=== PATIENT | female | born 1955 | race Hispanic/Latino ===

== ENCOUNTER → 2024-04-11 | Outpatient (CLI) | payer MEDICARE ==
[~2024-04-11] MED LIST: IPRA3AMP24 IH; PRED20B PO
== END | disposition home or self-care (01) ==
LOC: RAH 14:25
PROVIDERS: ATTEND Internal Medicine
DX: Z13.820 Encounter for screening for osteoporosis (principal); M47.26 Other spondylosis with radiculopathy, lumbar region; N28.1 Cyst of kidney, acquired
CPT/HCPCS: 72100

== ENCOUNTER 2025-03-07 15:22 | Inpatient (IN) | payer MEDICARE ==
[~2025-03-07] VITALS: Ht 162.6 cm; Wt 83.7 kg
--- NOTE | 2025-03-07 15:53 | EKG ---
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
[2025-03-07 16:08] LABS: BASOPHILS # (AUTO) 0.03 K/uL (0.00-0.20); BASOPHILS % (AUTO) 0.3 % (0.0-5.0); EOSINOPHILS # (AUTO) 0.14 K/uL (0.00-0.70); EOSINOPHILS % (AUTO) 1.5 % (0.0-8.0); HEMATOCRIT 44.6 % (36-48); IMMATURE GRANULOCYTE ABSOLUTE 0.02 K/uL (0-1); LYMPHOCYTES # (AUTO) 4.1 K/uL (1.0-4.8); LYMPHOCYTES % (AUTO) 44.1 % (21.0-51.0); MEAN CORPUSCULAR HGB CONC 32.5 g/dL (32.0-36.0); MEAN CORPUSCULAR VOLUME 95.5 fL (79-99); MONOCYTES # (AUTO) 0.7 K/uL (0.1-1.0); NEUTROPHILS # (AUTO) 4.4 K/uL (1.8-7.7); NEUTROPHILS % (AUTO) 46.9 % (40.0-77.0); PLATELET COUNT (AUTO) 228 K/uL (130-400); RED BLOOD CELL COUNT(AUTO) 4.67 MIL/uL (4.00-5.50); RED CELL DISTRIBUTION WIDTH 12.7 % (11.0-15.5); WHITE BLOOD COUNT (AUTO) 9.4 K/uL (4.8-10.8)
[2025-03-07 16:16] LABS: CREATININE 1.1 mg/dL (0.5-1.0); POTASSIUM 3.4 mmol/L (3.5-5.1)
[2025-03-07 16:19] LABS: INR 1.05 (0.85-1.15); PROTHROMBIN TIME 11.1 SEC (9.6-11.6)
[2025-03-07 16:21] LABS: PARTIAL THROMBOPLASTIN TIME 28.5 SEC (26.3-35.5)
--- NOTE | 2025-03-07 16:24 | HMCIMG ---
CHEST 1VW HISTORY: Shortness of breath COMPARISON: 08/18/2023 FINDINGS: A frontal projection of the chest was obtained. No acute pulmonary infiltrates is seen. The heart is normal in size. Prominent interstitial markings are seen. Degenerative changes are seen. No evidence of aortic calcification is seen. IMPRESSION: 1. No acute pulmonary infiltrate is seen.
[2025-03-07 16:26] LABS: MAGNESIUM 1.7 mg/dL (1.80-2.40)
[2025-03-07 16:27] LABS: B-TYPE NATRIURETIC PEPTIDE 9 pg/mL (0-100)
[2025-03-07 16:34] LABS: BAND NEUTROPHILS % (MANUAL) 7 % (0-2); EOSINOPHILS % (MANUAL) 3 % (1-6); LYMPHOCYTES % (MANUAL) 2 % (22-44); MAN.DIFF COMMENT-IMPRESSION MANUAL DIFFERENTIAL; MONOCYTES % (MANUAL) 5 % (2-9); REACTIVE LYMPHOCYTES 37 % (0-0); SEGMENTED NEUTROPHILS % 46 % (40-70); TOTAL CELLS COUNTED 100
[2025-03-07] MEDS: IpraTROPium/alBUTERol SULFATE 3 ML SOLUTION IH ONE ×3 (17:14→22:35)
[2025-03-07 17:15] VITALS: PULSE 82; RESP 18
[2025-03-07] MEDS: 0.9% NACL 500ML IV.SOLN 500 ML IV ONE (17:27)
[2025-03-07] MEDS: Solu-medROL 125MG VIAL IVP ONE (17:27)
--- NOTE | 2025-03-07 17:33 | ERN ---
General Chief Complaint: Congestion Stated Complaint: SOB, COPD Time Seen by MD: 15:22 Source: patient History of Present Illness Initial Comments Patient is a 69-year-old female coming in complaining of shortness of breath. Patient states that she was seen by her PCP started on medications but states it was not been working. States he does has a history of COPD in his on several medications that they are not working. Allergies: Coded Allergies: No Known Allergies (Unverified Allergy, Unknown, 08/16/23) Home Meds Active Scripts Ipratropium/Albuterol Sulfate (Iprat-Albut 0.5-3(2.5) mg/3 ml) 0.5 Mg-3 Mg (2.5 Mg Base)/3 Ml Ampul.neb, 1 UDVIAL IH [id number], #30 VIAL 1 Refill Prov:YEISON PINZON [employer]AR PROJECT MANAGER 08/21/23 Prednisone (Deltasone/Orasone [Bulk]) 20 Mg Tab, 40 MG PO DAILY, #5 TAB Prov:YEISON PINZON SOLAR PROJECT MANAGER 08/21/23 Past Medical History Past Medical History: COPD, Diabetes-Type II Past Surgical History: Hysterectomy, Other, Surgical History Other: CYST REMOVAL FROM RT KIDNEY, HERNIA REPAIR ROS Dictation CONSTITUTIONAL: No chills, no fever, no weakness, no diaphoresis, no malaise. HEAD/FACE: No signs of trauma. EENT: No eye pain, no blurred vision, no tearing, no double vision, no ear pain, no ear discharge, no nose pain, no nasal congestion, no throat pain, no throat swelling, no mouth pain. RESPIRATORY: No cough, no orthopnea, SOB, no stridor, wheezing. CARDIOVASCULAR: No chest pain, no edema, no palpitations, no syncope. GASTROINTESTINAL/ABDOMINAL: No abdominal pain, no constipation, no diarrhea, no nausea, no vomiting. GENITOURINARY: No abnormal discharge, no dysuria, no frequent urination, no hematuria. No complaints of pain in the genitals. MUSCULOSKELETAL: No back pain, no gout, no joint pain, no joint swelling, no muscle pain, no muscle stiffness, no neck pain. INTEGUMENTARY: No change in color, no change in hair/nails, no dryness, no lesion, no lumps, no rash. NEUROLOGICAL/PSYCH: No anxiety, not depressed, no emotional problem, no headache, no numbness, no pre-existing deficit, no history of seizures, no tremors, no weakness. HEMATOLOGIC/LYMPHATIC: Not anemic, no history of blood clots, no apparent bleeding, no bruising, glands not swollen. All Systems Negative, Except as Noted. Physical Exam Physical Exam Dictation VITAL SIGNS: Reviewed. GENERAL APPEARANCE: Alert, oriented x3, no acute distress, obese. HEAD AND FACE: Non-traumatic. EYES: PERRL, pink conjunctivas, eyelid no trauma, anterior chamber clear. EARS: Pinnas intact and no signs of trauma or erythema. Ear canals clear and no discharge. TMs no erythema. NOSE: No discharge, no bleeding. OROPHARYNX: Mouth normal, teeth no caries, tongue pink. Pharynx clear, no erythema. Tonsils no exudates, no abscesses noted. Mucous membrane moist. NECK: Supple, non-tender, no thyromegaly, no masses, no JVD, no bruits. BREAST: Deferred. CHEST: No tenderness, no crepitus, no paradoxical movement, no retractions. LUNGS: Clear, well-ventilated, symmetric, no rales, wheezing, rhonchi, no stridor, good breath sounds bilaterally. HEART: Regular rate, regular rhythm, no murmur, no gallops. VASCULAR: No peripheral edema. ABDOMEN: Soft, positive bowel sounds, nondistended, no guarding, nontender, no rebound, no masses no hepatomegaly, no splenomegaly, no Mercedes's sign, no hernias. RECTAL: Deferred. GENITAL: Deferred. NEUROLOGICAL: Normal speech, gross motor function intact, gross sensory function intact. MUSCULOSKELETAL: Neck nontender, full range of motion, back nontender, full range of motion. EXTREMITIES: Nontender, full range of motion. SKIN: Color pink, dry, no turgor, no rash, no lacerations, no abrasions, no contusions. LYMPHATICS: Deferred. Results Laboratory and Microbiology Lab and Micro Result Laboratory Tests Test 03/07/25 16:00 03/07/25 17:38 White Blood Count 9.4 K/uL (4.8-10.8) Red Blood Count 4.67 MIL/uL (4.00-5.50) Hemoglobin 14.5 g/dL (12.0-16.0) Hematocrit 44.6 % (36-48) Mean Corpuscular Volume 95.5 fL (79-99) Mean Corpuscular Hemoglobin 31.0 pg (27.0-33.0) Mean Corpuscular Hemoglobin Concent 32.5 g/dL (32.0-36.0) Red Cell Distribution Width 12.7 % (11.0-15.5) Platelet Count 228 K/uL (130-400) Mean Platelet Volume 9.7 fL (7.5-10.5) Immature Granulocyte % (Auto) 0.2 % (0-1) Neutrophils (%) (Auto) 46.9 % (40.0-77.0) Lymphocytes (%) (Auto) 44.1 % (21.0-51.0) Monocytes (%) (Auto) 7.0 % (3.0-13.0) Eosinophils (%) (Auto) 1.5 % (0.0-8.0) Basophils (%) (Auto) 0.3 % (0.0-5.0) Neutrophils # (Auto) 4.4 K/uL (1.8-7.7) Lymphocytes # (Auto) 4.1 K/uL (1.0-4.8) Monocytes # (Auto) 0.7 K/uL (0.1-1.0) Eosinophils # (Auto) 0.14 K/uL (0.00-0.70) Basophils # (Auto) 0.03 K/uL (0.00-0.20) Absolute Immature Granulocyte (auto 0.02 K/uL (0-1) Segmented Neutrophils % 46 % (40-70) Band Neutrophils % 7 % (0-2) H Lymphocytes % (Manual) 2 % (22-44) L Monocytes % (Manual) 5 % (2-9) Eosinophils % (Manual) 3 % (1-6) Nucleated Red Blood Cells 0.0 % (0.0-0.19) Differential Comment MANUAL DIFFERENTIAL Reactive Lymphocytes 37 % (0-0) H White Cell Morphology Comment Platelet Morphology Comment Red Blood Cell Morphology See comments Prothrombin Time 11.1 SEC (9.6-11.6) Prothromb Time International Ratio 1.05 (0.85-1.15) Activated Partial Thromboplast Time 28.5 SEC (26.3-35.5) Sodium Level 141 mmol/L (136-145) Potassium Level 3.4 mmol/L (3.5-5.1) L Chloride Level 107 mmol/L (101-111) Carbon Dioxide Level 24 mmol/L (21-32) Blood Urea Nitrogen 28 mg/dL (7-18) H Creatinine 1.1 mg/dL (0.5-1.0) H Glomerular Filtration Rate Calc 55 mL/min (>90) Random Glucose 193 mg/dL (70-105) H Total Calcium 8.4 mg/dL (8.5-10.1) L Magnesium Level 1.70 mg/dL (1.80-2.40) L Total Creatine Kinase 54 U/L (21-232) Troponin I High Sensitivity 5 ng/L (4-50) B-Type Natriuretic Peptide 9 pg/mL (0-100) Urine Color YELLOW (YELLOW) Urine Appearance CLOUDY (CLEAR) H Urine pH 5.5 (5.0-8.0) Urine Specific [place] 1.029 (1.001-1.031) Urine Protein NEGATIVE mg/dL (NEGATIVE) Urine Glucose (UA) NEGATIVE mg/dL (NEGATIVE) Urine Ketones NEGATIVE mg/dL (NEGATIVE) Urine Occult Blood NEGATIVE (NEGATIVE) Urine Nitrate NEGATIVE (NEGATIVE) Urine Bilirubin NEGATIVE mg/dL (NEGATIVE) Urine Urobilinogen 0.2 mg/dL (0.2-1.0) Urine Leukocyte Esterase 25 Katie/uL (NEGATIVE) H Urine RBC 2-5 /HPF (0-1) H Urine WBC 11-25 /HPF (0-1) H Urine Squamous Epithelial Cells FEW /HPF (0-2) Urine Non-Squamous Epithelial Cells <1 /HPF (0-2) Urine Calcium Oxalate Crystals MOD /LPF (None Seen) Urine Other Crystals (Auto) 64 /HPF (None Seen) Urine Bacteria RARE /HPF (None Seen) Labs Reviewed?: Yes EKG/XRAY/US/CT/MRI EKG Comment 03/07/2025 time 3:51 p.m. Ventricular rate 92 Sinus rhythm MS [address] wave elevation or depression X-RAY Comment [address] [place] [id number] IMAGING REPORT Signed PATIENT: CARROLL CESAR MR#: [id number] : 1955 SEX: F AGE: 69 LOCATION: [facility] ORDER [id number] STATUS: REG ER REPORT#: [id number] SERVICE 1531 REASON: SOB ORDERING PHYSICIAN: EDWIN LUONG MD PROCEDURE: CXR1VW - CHEST 1VW CHEST 1VW HISTORY: Shortness of breath COMPARISON: 08/18/2023 FINDINGS: A frontal projection of the chest was obtained. No acute pulmonary infiltrates is seen. The heart is normal in size. Prominent interstitial markings are seen. Degenerative changes are seen. No evidence of aortic calcification is seen. IMPRESSION: 1. No acute pulmonary infiltrate is seen. DICTATED BY: THEODORA BENNETT MD DATE: 03/07/251620 ELECTRONICALLY SIGNED BY: THEODORA BENNETT MD DATE: 03/07/251623 MDM MDM: Differential diagnosis: COPD exacerbation, URI, respiratory distress, Rationale: Tests considered and ordered secondary to shared decision making include: labs, ECG and radiology Previous outside records reviewed: Old ER visits. Risk of complication and/or morbidity or mortality of patient management: None Medications-Per medication reconciliation Need for hospitalization: Patient does meet criteria for hospitalization. Need for emergency major/minor surgery: No There are no social concerns with this patient. Prescription drug management Prescriptions will include symptomatic care Patient's prior external medical records from other ER visits were reviewed by me as indicated. Prior testing and results from previous visits were reviewed. Prior tests were taken into account with medical decision making and resource utilization, independent historian/historians were used to obtain complete medical history. I independently interpreted the test that were performed, results were reviewed by me and considered findings on radiology if ordered. Medical management and examination interpretation discussions were had by me with other qualified healthcare professionals as indicated for the patient's care. She will be admitted under the care of Dr. brown for ongoing management ED Course Orders Procedure Category Date Status Time Cbc With Differential LAB 03/07/25 In Process 15:31 Prothrombin Time With LAB 03/07/25 Complete INR 15:31 B-Type Natriuretic LAB 03/07/25 In Process Peptide 15:31 Chest 1vw RAD 03/07/25 Resulted 15:31 12 Lead Ekg Tracing- EKG 03/07/25 Complete Technical 15:31 Magnesium LAB 03/07/25 Complete 15:31 Creatine Kinase, Total LAB 03/07/25 Complete 15:31 Troponin I High LAB 03/07/25 Complete Sensitivity 15:31 Urinalysis Profile LAB 03/07/25 Complete 15:31 Partial LAB 03/07/25 Complete Thromboplastin Time 15:31 Basic Metabolic Panel LAB 03/07/25 Complete 15:31 Manual Differential LAB 03/07/25 In Process 16:00 0.9% Nacl 500ml PHA 03/07/25 Complete Iv.Soln (Ns 500ml 17:00 Ipratropium/Albuterol PHA 03/07/25 Complete Neb (Duoneb) 17:00 Methylprednisolone PHA 03/07/25 Complete Succ 125mg (Solu-Medr 17:00 Culture Urine TERI 03/07/25 In Process 18:09 Current Medications Medications (Trade) Dose Ordered Sig/Paul Route PRN Reason Start Time Stop Time Status Last Admin Dose Admin Albuterol (DUOneb) 2 udvial ONCE ONCE IH 03/07/25 17:00 03/07/25 17:01 DC 03/07/25 17:14 Methylprednisolone Sodium Succinate (Solu-medROL 125MG) 125 mg ONCE ONCE IVP 03/07/25 17:00 03/07/25 17:01 DC 03/07/25 17:27 Sodium Chloride 500 ml @ 0 mls/hr ONCE ONCE IV 03/07/25 17:00 03/07/25 17:01 DC 03/07/25 17:27 Vital Signs Date Time Temp Pulse Resp B/P (MAP) Pulse Ox O2 Delivery O2 Flow Rate FiO2 03/07/25 17:41 98.8 82 18 143/70 94 Nasal Cannula* 2 28 03/07/25 17:15 82 18 03/07/25 16:11 98.8 84 22 143/70 94 Room Air* 0 21 03/07/25 15:29 98.2 100 20 156/107 94 Room Air DX & DISP Disposition: Inpatient Decision to Admit Time: 18:16 Departure Impression: Primary Impression: COPD exacerbation Additional Impression: Respiratory distress Condition: Stable Referrals: FLORA BROWN MD (PCP) EDWIN LUONG MD March 07, 2025 17:33
[2025-03-07 17:50] LABS: APPEARANCE,URINE CLOUDY (CLEAR); BILIRUBIN,URINE NEGATIVE (NEGATIVE); COLOR,URINE YELLOW (YELLOW); GLUCOSE, URINE (UA) NEGATIVE (NEGATIVE); KETONES,URINE NEGATIVE (NEGATIVE); LEUKOCYTE ESTERASE ,URINE 25 Leu/uL (NEGATIVE); NITRATE,URINE NEGATIVE (NEGATIVE); OCCULT BLOOD,URINE NEGATIVE (NEGATIVE); PH,URINE 5.5 (5.0-8.0); PROTEIN,URINE NEGATIVE (NEGATIVE); UROBILINOGEN,URINE 0.2 mg/dL (0.2-1.0)
[2025-03-07 17:51] LABS: ADD UA MICROSCOPIC YES
[2025-03-07 18:08] LABS: BACTERIA,URINE RARE /HPF (None Seen); CALCIUM OXALATE CRYSTALS,UR MOD /LPF (None Seen); MUCUS,URINE RARE LPF (None Seen); NON-SQUAMOUS EPITHELIAL CELL <1 /HPF (0-2); SQUAMOUS EPITHELIAL CELL,UR FEW /HPF (0-2); UNCLASSIFIED CRYSTAL 64 /HPF (None Seen)
[2025-03-07] MEDS ORDERED: PoTASSium chloRIDE 20MEQ/100ML 100 ML IV PRN (18:30)
[2025-03-07] MEDS ORDERED: PoTASSium chl 10% ELIXIR 20MEQ 20 MEQ/15 ML UDCUP PO PRN (18:30)
[2025-03-07] MEDS: Solu-medROL 40MG VIAL IVP SCH (18:30)
[2025-03-07] MEDS ORDERED: METF-444 PO (18:39)
[2025-03-07] MEDS ORDERED: BUPR100T13 PO (18:39)
[2025-03-07] MEDS ORDERED: SERT20OR6 PO (18:39)
[2025-03-07] MEDS ORDERED: SIMV-43 PO (18:39)
[2025-03-07] MEDS ORDERED: RALO60 PO (18:39)
[2025-03-07] MEDS ORDERED: ALPR-410 PO (18:39)
[2025-03-07] MEDS: cefTRIAXone 1G VIAL IVPB SCH (18:43)
[2025-03-07] MEDS: AZITHROMYCIN 250 MG TABLET PO SCH (18:43)
[2025-03-07] MEDS: ENOXAPARIN SODIUM 80 MG/0.8 ML SQ ONE (18:44)
[2025-03-07] MEDS: PoTASSium chloRIDE 20MEQ ER 20 MEQ ERTAB PO PRN (20:47)
[2025-03-07] MEDS: MAGNESIUM 2GM PREMIX 50ML 50 ML IV PRN (20:48)
[2025-03-07] MEDS: ALPRAZolam 0.5 MG TABLET PO PRN (21:22)
[2025-03-07 22:35] VITALS: PULSE 83; RESP 18
[2025-03-07] MEDS: IpraTROPium/alBUTERol SULFATE 3 ML SOLUTION IH SCH (22:35)
[2025-03-07 22:36] VITALS: PULSE 83; RESP 20; O2SAT 93
--- NOTE | 2025-03-07 22:40 | HP ---
HISTORY AND PHYSICAL NOTE DATE OF CONSULTATION: 03/07/25 REASON FOR CONSULTATION: Shortness of breath HISTORY OF PRESENT ILLNESS: Patient is a 69-year-old female coming in complaining of shortness of breath. Patient states that she was seen by her PCP started on medications but states it was not been working. States he does has a history of COPD in his on several medications that they are not working. Allergies: Coded Allergies: No Known Allergies (Unverified Allergy, Unknown, 08/16/23) Home Meds Active Scripts Ipratropium/Albuterol Sulfate (Iprat-Albut 0.5-3(2.5) mg/3 ml) 0.5 Mg-3 Mg (2.5 Mg Base)/3 Ml Ampul.neb, 1 UDVIAL IH [id number], #30 VIAL 1 Refill Prov:YEISON PINZON BILINGUAL MEDICAL RECEPTIONIST 08/21/23 Prednisone (Deltasone/Orasone [Bulk]) 20 Mg Tab, 40 MG PO DAILY, #5 TAB Prov:YEISON PINZON BILINGUAL MEDICAL RECEPTIONIST 08/21/23 Past History Past Medical History Past Medical History: COPD, Diabetes-Type II Past Surgical History: Hysterectomy, Other, Surgical History Other: CYST REMOVAL FROM RT KIDNEY, HERNIA REPAIR Review of Systems ROS Dictation CONSTITUTIONAL: No chills, no fever, no weakness, no diaphoresis, no malaise. HEAD/FACE: No signs of trauma. EENT: No eye pain, no blurred vision, no tearing, no double vision, no ear pain, no ear discharge, no nose pain, no nasal congestion, no throat pain, no throat swelling, no mouth pain. RESPIRATORY: No cough, no orthopnea, SOB, no stridor, wheezing. CARDIOVASCULAR: No chest pain, no edema, no palpitations, no syncope. GASTROINTESTINAL/ABDOMINAL: No abdominal pain, no constipation, no diarrhea, no nausea, no vomiting. GENITOURINARY: No abnormal discharge, no dysuria, no frequent urination, no hematuria. No complaints of pain in the genitals. MUSCULOSKELETAL: No back pain, no gout, no joint pain, no joint swelling, no muscle pain, no muscle stiffness, no neck pain. INTEGUMENTARY: No change in color, no change in hair/nails, no dryness, no lesion, no lumps, no rash. NEUROLOGICAL/PSYCH: No anxiety, not depressed, no emotional problem, no headache, no numbness, no pre-existing deficit, no history of seizures, no tremors, no weakness. HEMATOLOGIC/LYMPHATIC: Not anemic, no history of blood clots, no apparent bleeding, no bruising, glands not swollen. All Systems Negative, Except as Noted. ALLERGIES: Coded Allergies: No Known Allergies (Unverified Allergy, Unknown, 08/16/23) HOME MEDS: Reported Medications Alprazolam (Alprazolam) 0.5 Mg Tab.rapdis, 0.5 MG PO BID, TAB 03/07/25 Simvastatin (Simvastatin) 20 Mg Tablet, 20 MG PO HS, TAB 03/07/25 Raloxifene HCl (Evista) 60 Mg Tablet, 60 MG PO DAILY, TAB 03/07/25 Bupropion HCl (Bupropion HCl) 100 Mg Tablet, 100 MG PO DAILY, TAB 03/07/25 Sertraline HCl (Sertraline HCl) 20 Mg/Ml Oral.conc, 10 MG PO DAILY, ML 03/07/25 Metformin HCl (Metformin HCl) 500 Mg Tablet, 500 MG PO BID, TAB 03/07/25 Discontinued Scripts Ipratropium/Albuterol Sulfate (Iprat-Albut 0.5-3(2.5) mg/3 ml) 0.5 Mg-3 Mg (2.5 Mg Base)/3 Ml Ampul.neb, 1 UDVIAL IH [id number], #30 VIAL 1 Refill Prov:YEISON PINZON BILINGUAL MEDICAL RECEPTIONIST 08/21/23 Prednisone (Deltasone/Orasone [Bulk]) 20 Mg Tab, 40 MG PO DAILY, #5 TAB Prov:YEISON PINZON BILINGUAL MEDICAL RECEPTIONIST 08/21/23 INPATIENT MEDS: Current Medications Medications Dose Ordered Sig/Paul Start Time Stop Time Status Last Admin Methylprednisolone Sodium Succinate 80 mg Q8H 03/07/25 18:30 04/06/25 18:29 Ceftriaxone Sodium 1 gm Q24H 03/07/25 18:30 03/17/25 18:29 03/07/25 18:43 Azithromycin 500 mg Q24H 03/07/25 18:30 03/17/25 18:29 03/07/25 18:43 Potassium Chloride 100 ml @ 100 mls/hr AD PRN 5/3/25 18:30 04/06/25 18:29 Potassium Chloride 20 meq AD PRN 03/07/25 18:30 04/06/25 18:29 Potassium Chloride 20 meq AD PRN 03/07/25 18:30 04/06/25 18:29 03/07/25 20:47 Magnesium Sulfate 50 ml @ 0 mls/hr PROTOCOL PRN 03/07/25 18:30 04/06/25 18:29 03/07/25 20:48 Alprazolam 0.5 mg BID PRN 03/07/25 21:00 04/06/25 20:59 03/07/25 21:22 Albuterol 1 UDVIAL [id number] 03/07/25 22:30 04/07/25 00:00 03/07/25 22:35 VITAL SIGNS Vital Signs Date Time Temp Pulse Resp B/P (MAP) Pulse Ox O2 Delivery O2 Flow Rate FiO2 03/07/25 22:36 83 20 N/Cannula Low lpm 2.0 03/07/25 22:35 83 18 03/07/25 21:52 98.4 87 20 145/75 95 Room Air* 0 03/07/25 19:52 98.6 81 24 148/99 95 Room Air* 0 03/07/25 18:44 98.8 85 18 127/54 94 Nasal Cannula* 2 03/07/25 17:41 98.8 82 18 143/70 94 Nasal Cannula* 2 03/07/25 17:15 82 18 03/07/25 16:11 98.8 84 22 143/70 94 Room Air* 0 03/07/25 15:29 98.2 100 20 156/107 94 Room Air PHYSICAL EXAM Physical Exam Physical Exam Physical Exam Dictation VITAL SIGNS: Reviewed. GENERAL APPEARANCE: Alert, oriented x3, no acute distress, obese. HEAD AND FACE: Non-traumatic. EYES: PERRL, pink conjunctivas, eyelid no trauma, anterior chamber clear. EARS: Pinnas intact and no signs of trauma or erythema. Ear canals clear and no discharge. TMs no erythema. NOSE: No discharge, no bleeding. OROPHARYNX: Mouth normal, teeth no caries, tongue pink. Pharynx clear, no erythema. Tonsils no exudates, no abscesses noted. Mucous membrane moist. NECK: Supple, non-tender, no thyromegaly, no masses, no JVD, no bruits. BREAST: Deferred. CHEST: No tenderness, no crepitus, no paradoxical movement, no retractions. LUNGS: Clear, well-ventilated, symmetric, no rales, wheezing, rhonchi, no stridor, good breath sounds bilaterally. HEART: Regular rate, regular rhythm, no murmur, no gallops. VASCULAR: No peripheral edema. ABDOMEN: Soft, positive bowel sounds, nondistended, no guarding, nontender, no rebound, no masses no hepatomegaly, no splenomegaly, no Mercedes's sign, no hernias. RECTAL: Deferred. GENITAL: Deferred. NEUROLOGICAL: Normal speech, gross motor function intact, gross sensory function intact. MUSCULOSKELETAL: Neck nontender, full range of motion, back nontender, full range of motion. EXTREMITIES: Nontender, full range of motion. SKIN: Color pink, dry, no turgor, no rash, no lacerations, no abrasions, no contusions. LYMPHATICS: Deferred. LABORATORY RESULTS Laboratory Tests 03/07/25 16:00: White Blood Count 9.4, Red Blood Count 4.67, Hemoglobin 14.5, Hematocrit 44.6, Mean Corpuscular Volume 95.5, Mean Corpuscular Hemoglobin 31.0, Mean Corpuscular Hemoglobin Concent 32.5, Red Cell Distribution Width 12.7, Platelet Count 228, Mean Platelet Volume 9.7, Immature Granulocyte % (Auto) 0.2, Neutrophils (%) (Auto) 46.9, Lymphocytes (%) (Auto) 44.1, Monocytes (%) (Auto) 7.0, Eosinophils (%) (Auto) 1.5, Basophils (%) (Auto) 0.3, Neutrophils # (Auto) 4.4, Lymphocytes # (Auto) 4.1, Monocytes # (Auto) 0.7, Eosinophils # (Auto) 0.14, Basophils # (Auto) 0.03, Absolute Immature Granulocyte (auto 0.02, Segmented Neutrophils % 46, Band Neutrophils % 7, Lymphocytes % (Manual) 2, Monocytes % (Manual) 5, Eosinophils % (Manual) 3, Nucleated Red Blood Cells 0.0, Differential Comment MANUAL DIFFERENTIAL, Reactive Lymphocytes 37, White Cell Morphology Comment , Platelet Morphology Comment , Red Blood Cell Morphology See comments, Prothrombin Time 11.1, Prothromb Time International Ratio 1.05, Activated Partial Thromboplast Time 28.5, Sodium Level 141, Potassium Level 3.4, Chloride Level 107, Carbon Dioxide Level 24, Blood Urea Nitrogen 28, Creatinine 1.1, Glomerular Filtration Rate Calc 55, Random Glucose 193, Total Calcium 8.4, Magnesium Level 1.70, Total Creatine Kinase 54, Troponin I High Sensitivity 5, B-Type Natriuretic Peptide 9 03/07/25 17:38: Urine Color YELLOW, Urine Appearance CLOUDY, Urine pH 5.5, Urine Specific [place] 1.029, Urine Protein NEGATIVE, Urine Glucose (UA) NEGATIVE, Urine Ketones NEGATIVE, Urine Occult Blood NEGATIVE, Urine Nitrate NEGATIVE, Urine Bilirubin NEGATIVE, Urine Urobilinogen 0.2, Urine Leukocyte Esterase 25, Urine RBC 2-5, Urine WBC 11-25, Urine Squamous Epithelial Cells FEW, Urine Non- Squamous Epithelial Cells <1, Urine Calcium Oxalate Crystals MOD, Urine Other Crystals (Auto) 64, Urine Bacteria RARE PROBLEM LIST: (1) Respiratory distress ICD Codes: R06.03 - Acute respiratory distress (2) COPD exacerbation ICD Codes: J44.1 - Chronic obstructive pulmonary disease with (acute) exacerbation PLAN IV steroids bronchodilators and DVT prophylaxis follow-through FLORA BROWN MD March 07, 2025 22:40
--- NOTE | 2025-03-07 23:00 | NUR ---
REPORT GIVEN TO NURSE MIRELES
[2025-03-07 23:07] VITALS: BP 130/70; PULSE 99; RESP 20; TEMP 98
[2025-03-08] VITALS (17 sets, daily range): BP systolic 113–145; BP diastolic 54–64; PULSE 79–108; RESP 17–22; TEMP 97.6–99.3; O2SAT 94–96
[2025-03-08] MEDS ORDERED: IpraTROPium/alBUTERol SULFATE 3 ML SOLUTION IH SCH
[2025-03-08 05:58] LABS: BASOPHILS # (AUTO) 0.01 K/uL (0.00-0.20); BASOPHILS % (AUTO) 0.1 % (0.0-5.0); HEMATOCRIT 42.7 % (36-48); IMMATURE GRANULOCYTE ABSOLUTE 0.03 K/uL (0-1); LYMPHOCYTES # (AUTO) 1.1 K/uL (1.0-4.8); LYMPHOCYTES % (AUTO) 14.3 % (21.0-51.0); MEAN CORPUSCULAR HEMOGLOBIN 31.3 pg (27.0-33.0); MEAN CORPUSCULAR HGB CONC 32.8 g/dL (32.0-36.0); MEAN CORPUSCULAR VOLUME 95.5 fL (79-99); MONOCYTES # (AUTO) 0.1 K/uL (0.1-1.0); MONOCYTES % (AUTO) 1.2 % (3.0-13.0); NEUTROPHILS # (AUTO) 6.2 K/uL (1.8-7.7); PLATELET COUNT (AUTO) 246 K/uL (130-400); RED BLOOD CELL COUNT(AUTO) 4.47 MIL/uL (4.00-5.50); RED CELL DISTRIBUTION WIDTH 12.7 % (11.0-15.5); WHITE BLOOD COUNT (AUTO) 7.4 K/uL (4.8-10.8)
[2025-03-08 06:32] LABS: ALBUMIN 3.4 g/dL (3.5-5.0); BILIRUBIN,TOTAL 0.1 mg/dL (0.2-1.0); CREATININE 1.1 mg/dL (0.5-1.0); MAGNESIUM 2.1 mg/dL (1.80-2.40); POTASSIUM 4.6 mmol/L (3.5-5.1); TOTAL PROTEIN, SERUM 6.8 g/dL (6.0-8.3)
[2025-03-08] MEDS: INSULIN humuLIN R 100 UNIT/ML 3ML SQ SCH (07:09)
[2025-03-08] MEDS: BUPROPION HCL 100 MG PO SCH (09:00)
[2025-03-08] MEDS ORDERED: metFORmin HCL 500 MG TABLET PO SCH (09:00)
[2025-03-08] MEDS: SERTraline HCL 50 MG TABLET PO SCH (09:30)
[2025-03-08] MEDS: RALOXIFENE HCL 60 MG TABLET PO SCH (09:30)
--- NOTE | 2025-03-08 12:37 | NUR ---
Discharge Planning: Pt. states she lives with her spouse Kenji Hidalgo. Contact number is . PCP is Dr. Graham and preferred pharmacy [facility]. Pt. states she is independent with ADL's. No home health, provider services, or DME. Pt. is requesting information for possible provider services. Referral sent to Ashley Ramírez/[facility]. DCP is for home. No d/c needs at present time. Addendum: 03/08/25 at 1241 by JOSÉ LUIS BENNETT RN CM Amended: Links added.
[2025-03-08] MEDS: acetaMINOPHEN 325 MG TAB PO PRN (17:27)
[2025-03-08 17:42] LABS: COVID19 (SARS ANTIGEN RAPID) PRESUMPTIVE NEGATIVE (NEGATIVE); INFLUENZA TYPE A Negative For Type A (NEGATIVE); INFLUENZA TYPE B Negative For Type B (NEGATIVE)
--- NOTE | 2025-03-08 18:22 | CONS ---
[facility] CONSULTATION NOTE Date Patient Seen: March 08, 2025 Time of Visit: 19:06 Supervising Physician: [Dr. Nevarez] Reason for Consultation: [COPD exacerbation] Primary Care Physician: [Dr. Graham] Outpatient Specialists: [ ] Inpatient Consults: [ ] PROBLEM LIST: Chronic obstructive pulmonary disease, with acute exacerbation History of right LL pulmonary nodule, being monitored Hypokalemia Tobacco abuse, 40+ pack years Morbid obesity History of right renal cyst, s/p surgical excision Hyperlipidemia Anxiety HPI: [This is a 61-year-old female with a history of diabetes and COPD who presents to the ED for evaluation of shortness of breaths. Per ED report she was seen by her PCP and prescribed treatment outpatient with no improvement prompting a visit to the ED. her labs on admission including CBC and BNP were within normal limits. CK, troponin and BNP were normal. She had mild leukocyte esterase on UA, pending urine culture. She was treated with DuoNebs, Solu-Medrol and NS 500 mL in the ED. She continues on Rocephin and azithromycin.] PAST MEDICAL HX: see above PAST SURGICAL HX: noncontributory SOCIAL HISTORY: No tobacco, ETOH, or illicit drug use Coded Allergies: No Known Allergies (Unverified Allergy, Unknown, 08/16/23) REVIEW OF SYSTEMS: 12 point ROS reviewed with patient. Pertinent positives mentioned above. Otherwise negative. PHYSICAL EXAM: GENERAL: alert, weak, awake oriented x 3 HEENT: EOMI, Sclera non icteric, moist mucosa NECK: Supple, no JVD, trachea midline LUNGS: Clear breath sounds bilaterally. No wheezes HEART: Regular rate and rhythm. Normal S1 and S2, without murmurs ABD: Abdomen soft, nontender. Bowel sounds present EXT: No clubbing cyanosis or edema NEURO: Alert and oriented to person, follows commands Vital Signs (last 8hr) Date Time Temp Pulse Resp B/P (MAP) Pulse Ox O2 Delivery O2 Flow Rate FiO2 03/08/25 15:16 99.3 107 18 137/54 93 Room Air 03/08/25 14:35 91 19 03/08/25 14:35 91 19 N/A Room Air 21 03/08/25 11:54 98.1 91 19 134/61 94 Room Air 03/08/25 11:16 90 19 03/08/25 11:15 90 19 N/A Room Air 21 LABS: Hematology Labs: Test 03/08/25 05:26 03/07/25 16:00 Range/Units White Blood Count 7.4 4.8-10.8 K/uL Red Blood Count 4.47 4.00-5.50 MIL/uL Hemoglobin 14.0 12.0-16.0 g/dL Hematocrit 42.7 36-48 % Mean Corpuscular Volume 95.5 79-99 fL Mean Corpuscular Hemoglobin 31.3 27.0-33.0 pg Mean Corpuscular Hemoglobin Concent 32.8 32.0-36.0 g/dL Red Cell Distribution Width 12.7 11.0-15.5 % Platelet Count 246 130-400 K/uL Mean Platelet Volume 10.1 7.5-10.5 fL Immature Granulocyte % (Auto) 0.4 0-1 % Neutrophils (%) (Auto) 84.0 H 40.0-77.0 % Lymphocytes (%) (Auto) 14.3 L 21.0-51.0 % Monocytes (%) (Auto) 1.2 L 3.0-13.0 % Eosinophils (%) (Auto) 0.0 0.0-8.0 % Basophils (%) (Auto) 0.1 0.0-5.0 % Neutrophils # (Auto) 6.2 1.8-7.7 K/uL Lymphocytes # (Auto) 1.1 1.0-4.8 K/uL Monocytes # (Auto) 0.1 0.1-1.0 K/uL Eosinophils # (Auto) 0.00 0.00-0.70 K/uL Basophils # (Auto) 0.01 0.00-0.20 K/uL Absolute Immature Granulocyte (auto 0.03 0-1 K/uL Nucleated Red Blood Cells 0.0 0.0-0.19 % Segmented Neutrophils % 46 40-70 % Band Neutrophils % 7 H 0-2 % Lymphocytes % (Manual) 2 L 22-44 % Monocytes % (Manual) 5 2-9 % Eosinophils % (Manual) 3 1-6 % Differential Comment MANUAL DIFFERENTIAL Reactive Lymphocytes 37 H 0-0 % White Cell Morphology Comment Platelet Morphology Comment Red Blood Cell Morphology See comments Chemistry Labs: Test 03/08/25 16:01 03/08/25 05:26 03/07/25 16:00 Range/Units Whole Blood Glucose 222 H 70-110 MG/DL Sodium Level 138 136-145 mmol/L Potassium Level 4.6 3.5-5.1 mmol/L Chloride Level 106 101-111 mmol/L Carbon Dioxide Level 21 21-32 mmol/L Blood Urea Nitrogen 19 H 7-18 mg/dL Creatinine 1.1 H 0.5-1.0 mg/dL Glomerular Filtration Rate Calc 55 >90 mL/min Random Glucose 229 H 70-105 mg/dL Total Calcium 9.1 8.5-10.1 mg/dL Magnesium Level 2.10 1.80-2.40 mg/dL Total Bilirubin 0.1 L 0.2-1.0 mg/dL Aspartate Amino Transf (AST/SGOT) 14 10-37 U/L Alanine Aminotransferase (ALT/SGPT) 28 12-78 U/L Alkaline Phosphatase 88 50-136 U/L Total Protein 6.8 6.0-8.3 g/dL Albumin 3.4 L 3.5-5.0 g/dL Total Creatine Kinase 54 21-232 U/L Troponin I High Sensitivity 5 4-50 ng/L B-Type Natriuretic Peptide 9 0-100 pg/mL Coagulation Labs: Test 03/07/25 16:00 Range/Units Prothrombin Time 11.1 9.6-11.6 SEC Prothromb Time International Ratio 1.05 0.85-1.15 Activated Partial Thromboplast Time 28.5 26.3-35.5 SEC DIAGNOSTICS / RADIOLOGY RESULTS: [ ] PLAN Continue IV antibiotics with Rocephin azithromycin Continue IV Solu-Medrol 80 Q eight Follow urine and sputum cultures Order COVID and flu swabs Obtain baseline ABG Monitor response to treatment Monitor CXR as needed Further management per hospital course All other management per primary Disposition per primary NEURO: Minimize central acting medications as possible. Maintain fall precautions, adequate lighting during the day PULMONARY: Supplemental 02 as needed. Maintain aspiration precautions at all times CARDIOVASCULAR: Follow hemodynamics. Vital signs per facility protocol GI & NUTRITION: Continue with nutritional support. Continue stool softeners and laxatives as needed. KIDNEYS & ELECTROLYTES: Strict monitoring of intake, output and overall fluid balance. Avoid nephrotoxic medications to the extent possible. Medications to be dosed according to renal function. Monitor electrolytes and replace as needed ENDOCRINE: Maintain blood glucose between 100-180 at all times. Hypoglycemia protocol in place INFECTIOUS DISEASE: Trend temperature, WBC and procalcitonin level Follow cultures, deescalate antibiotics as soon as possible. Panculture if new onset fever ONCOLOGY/HEMATOLOGY/COAGULATION: Monitor for s/s of bleeding Monitor hemoglobin, coagulation studies as needed SKIN: Pressure ulcer prevention per facility protocol Specialty mattress ORTHO/REHAB: Continue PT/OT Prophylaxis: Continue GI and DVT prophylaxis Code Status: Full Resuscitation Disposition: TBD Other: Total patient care time exceeds 35 minutes excluding all procedures. ANNAMARIE WHEELER March 08, 2025 18:22
[2025-03-08 18:34] LABS: ABG BASE EXCESS -5.3 mmol/L (-2.0-3.0); ABG HCO3 18.8 mmol/L (21.0-28.0); ABG OXYGEN SATURATION 93.3 % (94.0-98.0); ABG PCO2 33 mmHg (32-45); ABG PH 7.379 (7.350-7.450); PO2, ARTERIAL BG 67.3 mmHg (83.0-108.0); VENT MODE, BG RA (ROOM AIR)
[2025-03-08] MEDS: simVASTatin 20 MG TABLET PO SCH (20:51)
--- NOTE | 2025-03-08 21:53 | PN ---
PROGRESS NOTE PROGRESS NOTE DATE OF PROGRESS NOTE: 03/08/25 SUBJECTIVE: Still persists with wheezing or shortness of breath VITAL SIGNS Vital Signs Date Time Temp Pulse Resp B/P (MAP) Pulse Ox O2 Delivery O2 Flow Rate FiO2 03/08/25 19:12 90 19 03/08/25 19:11 N/A Room Air 21 03/08/25 19:00 98.1 145/64 90 03/08/25 08:00 2 PHYSICAL EXAM: Physical Exam Physical Exam Physical Exam Dictation VITAL SIGNS: Reviewed. GENERAL APPEARANCE: Alert, oriented x3, no acute distress, obese. HEAD AND FACE: Non-traumatic. EYES: PERRL, pink conjunctivas, eyelid no trauma, anterior chamber clear. EARS: Pinnas intact and no signs of trauma or erythema. Ear canals clear and no discharge. TMs no erythema. NOSE: No discharge, no bleeding. OROPHARYNX: Mouth normal, teeth no caries, tongue pink. Pharynx clear, no erythema. Tonsils no exudates, no abscesses noted. Mucous membrane moist. NECK: Supple, non-tender, no thyromegaly, no masses, no JVD, no bruits. BREAST: Deferred. CHEST: No tenderness, no crepitus, no paradoxical movement, no retractions. LUNGS: Clear, well-ventilated, symmetric, no rales, wheezing, rhonchi, no stridor, good breath sounds bilaterally. HEART: Regular rate, regular rhythm, no murmur, no gallops. VASCULAR: No peripheral edema. ABDOMEN: Soft, positive bowel sounds, nondistended, no guarding, nontender, no rebound, no masses no hepatomegaly, no splenomegaly, no Mercedes's sign, no hernias. RECTAL: Deferred. GENITAL: Deferred. NEUROLOGICAL: Normal speech, gross motor function intact, gross sensory function intact. MUSCULOSKELETAL: Neck nontender, full range of motion, back nontender, full range of motion. EXTREMITIES: Nontender, full range of motion. SKIN: Color pink, dry, no turgor, no rash, no lacerations, no abrasions, no con tusions. LYMPHATICS: Deferred. LABORATORY: Laboratory Result(s) Test 03/08/25 05:23 03/08/25 05:26 03/08/25 10:26 03/08/25 16:01 Whole Blood Glucose 228 MG/DL (70-110) 173 MG/DL (70-110) 222 MG/DL (70-110) White Blood Count 7.4 K/uL (4.8-10.8) Red Blood Count 4.47 MIL/uL (4.00-5.50) Hemoglobin 14.0 g/dL (12.0-16.0) Hematocrit 42.7 % (36-48) Mean Corpuscular Volume 95.5 fL (79-99) Mean Corpuscular Hemoglobin 31.3 pg (27.0-33.0) Mean Corpuscular Hemoglobin Concent 32.8 g/dL (32.0-36.0) Red Cell Distribution Width 12.7 % (11.0-15.5) Platelet Count 246 K/uL (130-400) Mean Platelet Volume 10.1 fL (7.5-10.5) Immature Granulocyte % (Auto) 0.4 % (0-1) Neutrophils (%) (Auto) 84.0 % (40.0-77.0) Lymphocytes (%) (Auto) 14.3 % (21.0-51.0) Monocytes (%) (Auto) 1.2 % (3.0-13.0) Eosinophils (%) (Auto) 0.0 % (0.0-8.0) Basophils (%) (Auto) 0.1 % (0.0-5.0) Neutrophils # (Auto) 6.2 K/uL (1.8-7.7) Lymphocytes # (Auto) 1.1 K/uL (1.0-4.8) Monocytes # (Auto) 0.1 K/uL (0.1-1.0) Eosinophils # (Auto) 0.00 K/uL (0.00-0.70) Basophils # (Auto) 0.01 K/uL (0.00-0.20) Absolute Immature Granulocyte (auto 0.03 K/uL (0-1) Nucleated Red Blood Cells 0.0 % (0.0-0.19) Sodium Level 138 mmol/L (136-145) Potassium Level 4.6 mmol/L (3.5-5.1) Chloride Level 106 mmol/L (101-111) Carbon Dioxide Level 21 mmol/L (21-32) Blood Urea Nitrogen 19 mg/dL (7-18) Creatinine 1.1 mg/dL (0.5-1.0) Glomerular Filtration Rate Calc 55 mL/min (>90) Random Glucose 229 mg/dL (70-105) Total Calcium 9.1 mg/dL (8.5-10.1) Magnesium Level 2.10 mg/dL (1.80-2.40) Total Bilirubin 0.1 mg/dL (0.2-1.0) Aspartate Amino Transf (AST/SGOT) 14 U/L (10-37) Alanine Aminotransferase (ALT/SGPT) 28 U/L (12-78) Alkaline Phosphatase 88 U/L (50-136) Total Protein 6.8 g/dL (6.0-8.3) Albumin 3.4 g/dL (3.5-5.0) Test 03/08/25 16:52 03/08/25 18:32 03/08/25 19:46 Influenza Type A Antigen Negative For Type A Influenza Type B Antigen Negative For Type B SARS-CoV-2 Antigen (Rapid) PRESUMPTIVE NEGATIVE Blood Gas Specimen Type Arterial Arterial Blood pH 7.379 (7.350-7.450) Arterial Blood Partial Pressure CO2 33 mmHg (32-45) Arterial Blood Partial Pressure O2 67.3 mmHg (83.0-108.0) Arterial Blood HCO3 18.8 mmol/L (21.0-28.0) Arterial Blood Oxygen Saturation 93.3 % (94.0-98.0) Arterial Blood Base Excess -5.3 mmol/L (-2.0-3.0) Blood Gas Temperature 37.0 CELSIUS (35.5-37.0) Blood Gas Vent Mode RA (ROOM AIR) FiO2 21.0 % Blood Gas Specimen Comment RR, RN DONOVAN Whole Blood Glucose 256 MG/DL (70-110) INPATIENT MEDS: Current Medications Medications Dose Ordered Sig/Paul Start Time Stop Time Status Last Admin Methylprednisolone Sodium Succinate 80 mg Q8H 03/07/25 18:30 04/06/25 18:29 03/08/25 18:34 Ceftriaxone Sodium 1 gm Q24H 03/07/25 18:30 03/17/25 18:29 03/08/25 18:34 Azithromycin 500 mg Q24H 03/07/25 18:30 03/17/25 18:29 03/08/25 18:34 Potassium Chloride 100 ml @ 100 mls/hr AD PRN 03/07/25 18:30 04/06/25 18:29 Potassium Chloride 20 meq AD PRN 03/07/25 18:30 04/06/25 18:29 Potassium Chloride 20 meq AD PRN 03/07/25 18:30 04/06/25 18:29 03/08/25 00:11 Magnesium Sulfate 50 ml @ 0 mls/hr PROTOCOL PRN 03/07/25 18:30 04/06/25 18:29 03/07/25 20:48 Alprazolam 0.5 mg BID PRN 03/07/25 21:00 04/06/25 20:59 03/08/25 20:51 Albuterol 1 UDVIAL [id number] 03/07/25 22:30 04/07/25 00:00 03/08/25 19:08 Raloxifene HCl 60 mg DAILY 03/08/25 09:00 04/07/25 08:59 03/08/25 09:30 Simvastatin 20 mg HS 03/08/25 21:00 04/07/25 20:59 03/08/25 20:51 Home Med DAILY 03/08/25 09:00 04/07/25 08:59 Sertraline HCl 150 mg DAILY 03/08/25 09:00 04/07/25 08:59 03/08/25 09:30 Guaifenesin/ Dextromethorphan 10 ml Q4H PRN 03/08/25 07:00 04/07/25 06:59 Insulin Human Regular INSULIN SLIDING SCAL... ACHS 03/08/25 07:30 04/07/25 07:29 03/08/25 20:54 Acetaminophen 650 mg Q6H PRN 03/08/25 17:30 04/07/25 17:29 03/08/25 17:27 Lactulose 20 gm BID PRN 03/08/25 21:30 04/07/25 21:29 PROBLEM LIST: (1) Respiratory distress ICD Code: R06.03 - Acute respiratory distress (2) COPD exacerbation ICD Code: J44.1 - Chronic obstructive pulmonary disease with (acute) exacerbation PLAN: IV steroids bronchodilators and DVT prophylaxis follow-through FLORA BROWN MD March 08, 2025 21:53
[2025-03-08] MEDS: LACTULOSE 20 GM/30 ML UDCUP PO PRN (22:03)
[2025-03-08] MEDS: SODIUM CHLORIDE 3% FOR INHALATION 4 ML/AMP VIAL.NEB IH ONE (22:33)
[2025-03-09] VITALS (19 sets, daily range): BP systolic 118–147; BP diastolic 49–67; PULSE 84–100; RESP 17–24; TEMP 97.9–98.4; O2SAT 91–97
[2025-03-09 04:25] LABS: BASOPHILS # (AUTO) 0.02 K/uL (0.00-0.20); BASOPHILS % (AUTO) 0.1 % (0.0-5.0); HEMATOCRIT 39.9 % (36-48); IMMATURE GRANULOCYTE ABSOLUTE 0.11 K/uL (0-1); LYMPHOCYTES # (AUTO) 1.3 K/uL (1.0-4.8); LYMPHOCYTES % (AUTO) 6.8 % (21.0-51.0); MEAN CORPUSCULAR HGB CONC 32.6 g/dL (32.0-36.0); MONOCYTES # (AUTO) 0.8 K/uL (0.1-1.0); MONOCYTES % (AUTO) 4.4 % (3.0-13.0); NEUTROPHILS # (AUTO) 16.4 K/uL (1.8-7.7); NEUTROPHILS % (AUTO) 88.1 % (40.0-77.0); PLATELET COUNT (AUTO) 246 K/uL (130-400); WHITE BLOOD COUNT (AUTO) 18.6 K/uL (4.8-10.8)
[2025-03-09 04:55] LABS: CREATININE 1.1 mg/dL (0.5-1.0); POTASSIUM 4.2 mmol/L (3.5-5.1)
--- NOTE | 2025-03-09 12:47 | NUR ---
Discharge Update: CXR WNL. Pt. continues on iv abx, pending sputum culture. DCP is for home, depending on culture results.
--- NOTE | 2025-03-09 18:50 | PN ---
[facility] PROGRESS NOTE Date Patient Seen: March 09, 2025 Time of Visit: 19:44 Supervising Physician: [Dr. Nevarez] Primary Care Physician: [Dr. Graham] Outpatient Specialists: [ ] Inpatient Consults: [ ] PROBLEM LIST: Chronic obstructive pulmonary disease, with acute exacerbation History of right LL pulmonary nodule, being monitored Hypokalemia Tobacco abuse, 40+ pack years Morbid obesity History of right renal cyst, s/p surgical excision Hyperlipidemia Anxiety INTERVAL HISTORY: [Patient is evaluated at bedside. She continues with cough but is unable to expectorate phlegm. States her breathing is somewhat improved but still continues with the hypoxia on supplemental oxygen. Patient persists with bilateral wheezing on auscultation. She does appear weak on exam is well. Urine culture shows 10-50 K CFUs, sputum cultures negative thus far. Labs including CBC and BNP are unremarkable. WBCs are elevated secondary to steroids . COVID/flu negative, ABG WNL.] REVIEW OF SYSTEMS: 12 point ROS reviewed with patient. Pertinent positives mentioned above. Otherwise negative. PHYSICAL EXAM: GENERAL: alert, weak, awake oriented x 3 HEENT: EOMI, Sclera non icteric, moist mucosa NECK: Supple, no JVD, trachea midline LUNGS: Clear breath sounds bilaterally. No wheezes HEART: Regular rate and rhythm. Normal S1 and S2, without murmurs ABD: Abdomen soft, nontender. Bowel sounds present EXT: No clubbing cyanosis or edema NEURO: Alert and oriented to person, follows commands Vital Signs (last 8hr) Date Time Temp Pulse Resp B/P (MAP) Pulse Ox O2 Delivery O2 Flow Rate FiO2 03/09/25 16:00 98.2 97 18 138/54 90 Room Air 03/09/25 13:57 92 20 03/09/25 13:55 92 20 N/Cannula Low lpm 2.0 28 03/09/25 11:54 98.2 99 17 145/58 92 Room Air LABS: Hematology Labs: Test 03/09/25 04:14 Range/Units White Blood Count 18.6 #H 4.8-10.8 K/uL Red Blood Count 4.20 4.00-5.50 MIL/uL Hemoglobin 13.0 12.0-16.0 g/dL Hematocrit 39.9 36-48 % Mean Corpuscular Volume 95.0 79-99 fL Mean Corpuscular Hemoglobin 31.0 27.0-33.0 pg Mean Corpuscular Hemoglobin Concent 32.6 32.0-36.0 g/dL Red Cell Distribution Width 13.0 11.0-15.5 % Platelet Count 246 130-400 K/uL Mean Platelet Volume 9.7 7.5-10.5 fL Immature Granulocyte % (Auto) 0.6 0-1 % Neutrophils (%) (Auto) 88.1 H 40.0-77.0 % Lymphocytes (%) (Auto) 6.8 L 21.0-51.0 % Monocytes (%) (Auto) 4.4 3.0-13.0 % Eosinophils (%) (Auto) 0.0 0.0-8.0 % Basophils (%) (Auto) 0.1 0.0-5.0 % Neutrophils # (Auto) 16.4 H 1.8-7.7 K/uL Lymphocytes # (Auto) 1.3 1.0-4.8 K/uL Monocytes # (Auto) 0.8 0.1-1.0 K/uL Eosinophils # (Auto) 0.00 0.00-0.70 K/uL Basophils # (Auto) 0.02 0.00-0.20 K/uL Absolute Immature Granulocyte (auto 0.11 0-1 K/uL Nucleated Red Blood Cells 0.0 0.0-0.19 % Chemistry Labs: Test 03/09/25 15:48 03/09/25 04:14 03/08/25 05:26 Range/Units Whole Blood Glucose 247 H 70-110 MG/DL Sodium Level 138 136-145 mmol/L Potassium Level 4.2 3.5-5.1 mmol/L Chloride Level 106 101-111 mmol/L Carbon Dioxide Level 25 21-32 mmol/L Blood Urea Nitrogen 20 H 7-18 mg/dL Creatinine 1.1 H 0.5-1.0 mg/dL Glomerular Filtration Rate Calc 55 >90 mL/min Random Glucose 177 H 70-105 mg/dL Total Calcium 8.7 8.5-10.1 mg/dL Magnesium Level 2.10 1.80-2.40 mg/dL Total Bilirubin 0.1 L 0.2-1.0 mg/dL Aspartate Amino Transf (AST/SGOT) 14 10-37 U/L Alanine Aminotransferase (ALT/SGPT) 28 12-78 U/L Alkaline Phosphatase 88 50-136 U/L Total Protein 6.8 6.0-8.3 g/dL Albumin 3.4 L 3.5-5.0 g/dL DIAGNOSTICS / RADIOLOGY RESULTS: [ ] PLAN Continue IV antibiotics with Rocephin azithromycin Decrease IV Solu-Medrol to 40 Q8H Repeat CBC and CXR in AM Follow urine and sputum cultures COVID and flu swabs negative Obtain baseline ABG Monitor response to treatment Monitor CXR as needed Further management per hospital course All other management per primary Disposition per primary NEURO: Minimize central acting medications as possible. Maintain fall precautions, adequate lighting during the day PULMONARY: Supplemental 02 as needed. Maintain aspiration precautions at all times CARDIOVASCULAR: Follow hemodynamics. Vital signs per facility protocol GI & NUTRITION: Continue with nutritional support. Continue stool softeners and laxatives as needed. KIDNEYS & ELECTROLYTES: Strict monitoring of intake, output and overall fluid balance. Avoid nephrotoxic medications to the extent possible. Medications to be dosed according to renal function. Monitor electrolytes and replace as needed ENDOCRINE: Maintain blood glucose between 100-180 at all times. Hypoglycemia protocol in place INFECTIOUS DISEASE: Trend temperature, WBC and procalcitonin level Follow cultures, deescalate antibiotics as soon as possible. Panculture if new onset fever ONCOLOGY/HEMATOLOGY/COAGULATION: Monitor for s/s of bleeding Monitor hemoglobin, coagulation studies as needed SKIN: Pressure ulcer prevention per facility protocol Specialty mattress ORTHO/REHAB: Continue PT/OT Prophylaxis: Continue GI and DVT prophylaxis Code Status: Full Resuscitation Disposition: TBD Other: Total patient care time exceeds 35 minutes excluding all procedures. ANNAMARIE WHEELER March 09, 2025 18:50
--- NOTE | 2025-03-09 22:00 | PN ---
PROGRESS NOTE PROGRESS NOTE DATE OF PROGRESS NOTE: 03/09/25 SUBJECTIVE: persists with dyspnea VITAL SIGNS Vital Signs Date Time Temp Pulse Resp B/P (MAP) Pulse Ox O2 Delivery O2 Flow Rate FiO2 03/09/25 20:00 98.2 89 20 118/55 92 Room Air 03/09/25 18:55 2.0 28 PHYSICAL EXAM: Physical Exam Physical Exam Physical Exam Dictation VITAL SIGNS: Reviewed. GENERAL APPEARANCE: Alert, oriented x3, no acute distress, obese. HEAD AND FACE: Non-traumatic. EYES: PERRL, pink conjunctivas, eyelid no trauma, anterior chamber clear. EARS: Pinnas intact and no signs of trauma or erythema. Ear canals clear and no discharge. TMs no erythema. NOSE: No discharge, no bleeding. OROPHARYNX: Mouth normal, teeth no caries, tongue pink. Pharynx clear, no erythema. Tonsils no exudates, no abscesses noted. Mucous membrane moist. NECK: Supple, non-tender, no thyromegaly, no masses, no JVD, no bruits. BREAST: Deferred. CHEST: No tenderness, no crepitus, no paradoxical movement, no retractions. LUNGS: Clear, well-ventilated, symmetric, no rales, wheezing, rhonchi, no stridor, good breath sounds bilaterally. HEART: Regular rate, regular rhythm, no murmur, no gallops. VASCULAR: No peripheral edema. ABDOMEN: Soft, positive bowel sounds, nondistended, no guarding, nontender, no r ebound, no masses no hepatomegaly, no splenomegaly, no Mercedes's sign, no hernias. RECTAL: Deferred. GENITAL: Deferred. NEUROLOGICAL: Normal speech, gross motor function intact, gross sensory function intact. MUSCULOSKELETAL: Neck nontender, full range of motion, back nontender, full range of motion. EXTREMITIES: Nontender, full range of motion. SKIN: Color pink, dry, no turgor, no rash, no lacerations, no abrasions, no contusions. LYMPHATICS: Deferred. LABORATORY: Laboratory Result(s) Test 03/09/25 04:14 03/09/25 05:49 03/09/25 11:02 03/09/25 15:48 White Blood Count 18.6 K/uL (4.8-10.8) Red Blood Count 4.20 MIL/uL (4.00-5.50) Hemoglobin 13.0 g/dL (12.0-16.0) Hematocrit 39.9 % (36-48) Mean Corpuscular Volume 95.0 fL (79-99) Mean Corpuscular Hemoglobin 31.0 pg (27.0-33.0) Mean Corpuscular Hemoglobin Concent 32.6 g/dL (32.0-36.0) Red Cell Distribution Width 13.0 % (11.0-15.5) Platelet Count 246 K/uL (130-400) Mean Platelet Volume 9.7 fL (7.5-10.5) Immature Granulocyte % (Auto) 0.6 % (0-1) Neutrophils (%) (Auto) 88.1 % (40.0-77.0) Lymphocytes (%) (Auto) 6.8 % (21.0-51.0) Monocytes (%) (Auto) 4.4 % (3.0-13.0) Eosinophils (%) (Auto) 0.0 % (0.0-8.0) Basophils (%) (Auto) 0.1 % (0.0-5.0) Neutrophils # (Auto) 16.4 K/uL (1.8-7.7) Lymphocytes # (Auto) 1.3 K/uL (1.0-4.8) Monocytes # (Auto) 0.8 K/uL (0.1-1.0) Eosinophils # (Auto) 0.00 K/uL (0.00-0.70) Basophils # (Auto) 0.02 K/uL (0.00-0.20) Absolute Immature Granulocyte (auto 0.11 K/uL (0-1) Nucleated Red Blood Cells 0.0 % (0.0-0.19) Sodium Level 138 mmol/L (136-145) Potassium Level 4.2 mmol/L (3.5-5.1) Chloride Level 106 mmol/L (101-111) Carbon Dioxide Level 25 mmol/L (21-32) Blood Urea Nitrogen 20 mg/dL (7-18) Creatinine 1.1 mg/dL (0.5-1.0) Glomerular Filtration Rate Calc 55 mL/min (>90) Random Glucose 177 mg/dL (70-105) Total Calcium 8.7 mg/dL (8.5-10.1) Whole Blood Glucose 166 MG/DL (70-110) 215 MG/DL (70-110) 247 MG/DL (70-110) Test 03/09/25 19:31 Whole Blood Glucose 205 MG/DL (70-110) Microbiology Results Date/Time Source Procedure Growth Status 03/08/25 22:51 Sputum Induced Gram Stain - Final Resulted 03/08/25 22:51 Sputum Induced Respiratory Culture Pending Resulted INPATIENT MEDS: Current Medications Medications Dose Ordered Sig/Paul Start Time Stop Time Status Last Admin Ceftriaxone Sodium 1 gm Q24H 03/07/25 18:30 03/17/25 18:29 03/09/25 18:49 Azithromycin 500 mg Q24H 03/07/25 18:30 03/17/25 18:29 03/09/25 18:49 Potassium Chloride 100 ml @ 100 mls/hr AD PRN 03/07/25 18:30 04/06/25 18:29 Potassium Chloride 20 meq AD PRN 03/07/25 18:30 04/06/25 18:29 Potassium Chloride 20 meq AD PRN 03/07/25 18:30 04/06/25 18:29 03/08/25 00:11 Magnesium Sulfate 50 ml @ 0 mls/hr PROTOCOL PRN 03/07/25 18:30 04/06/25 18:29 03/07/25 20:48 Alprazolam 0.5 mg BID PRN 03/07/25 21:00 04/06/25 20:59 03/09/25 20:35 Albuterol 1 UDVIAL [id number] 03/07/25 22:30 04/07/25 00:00 03/09/25 18:36 Raloxifene HCl 60 mg DAILY 03/08/25 09:00 04/07/25 08:59 03/09/25 09:10 Simvastatin 20 mg HS 03/08/25 21:00 04/07/25 20:59 03/09/25 20:36 Home Med DAILY 03/08/25 09:00 04/07/25 08:59 Sertraline HCl 150 mg DAILY 03/08/25 09:00 04/07/25 08:59 03/09/25 09:10 Guaifenesin/ Dextromethorphan 10 ml Q4H PRN 03/08/25 07:00 04/07/25 06:59 Insulin Human Regular INSULIN SLIDING SCAL... ACHS 03/08/25 07:30 04/07/25 07:29 03/09/25 16:56 Acetaminophen 650 mg Q6H PRN 03/08/25 17:30 04/07/25 17:29 03/09/25 13:04 Lactulose 20 gm BID PRN 03/08/25 21:30 04/07/25 21:29 03/09/25 09:10 Methylprednisolone Sodium Succinate 40 mg Q8H 03/10/25 02:30 04/09/25 02:29 PROBLEM LIST: (1) Respiratory distress ICD Code: R06.03 - Acute respiratory distress (2) COPD exacerbation ICD Code: J44.1 - Chronic obstructive pulmonary disease with (acute) exacerbation PLAN: IV steroids bronchodilators and DVT prophylaxis follow-through FLORA BROWN MD March 09, 2025 22:00
[2025-03-10] VITALS (17 sets, daily range): BP systolic 125–158; BP diastolic 47–84; PULSE 73–96; RESP 17–20; TEMP 97.9–98.1; O2SAT 94–96
[2025-03-10] MEDS: Solu-medROL 40MG VIAL IVP SCH (02:52)
[2025-03-10 05:38] LABS: BASOPHILS # (AUTO) 0.01 K/uL (0.00-0.20); BASOPHILS % (AUTO) 0.1 % (0.0-5.0); HEMATOCRIT 40.7 % (36-48); IMMATURE GRANULOCYTE ABSOLUTE 0.27 K/uL (0-1); LYMPHOCYTES # (AUTO) 1.3 K/uL (1.0-4.8); LYMPHOCYTES % (AUTO) 7.4 % (21.0-51.0); MEAN CORPUSCULAR HEMOGLOBIN 30.8 pg (27.0-33.0); MEAN CORPUSCULAR HGB CONC 32.4 g/dL (32.0-36.0); MEAN CORPUSCULAR VOLUME 95.1 fL (79-99); MONOCYTES # (AUTO) 0.6 K/uL (0.1-1.0); MONOCYTES % (AUTO) 3.5 % (3.0-13.0); NEUTROPHILS # (AUTO) 15.2 K/uL (1.8-7.7); NEUTROPHILS % (AUTO) 87.4 % (40.0-77.0); PLATELET COUNT (AUTO) 246 K/uL (130-400); RED BLOOD CELL COUNT(AUTO) 4.28 MIL/uL (4.00-5.50); WHITE BLOOD COUNT (AUTO) 17.3 K/uL (4.8-10.8)
--- NOTE | 2025-03-10 09:20 | HMCIMG ---
Exam Type: CHEST 1VW Clinical Information: copd exacerbation Comparison: None Findings: The lungs are clear of infiltrates. The heart is normal in size. The bony and soft tissue structures of the chest are unremarkable. Impression: Clear lungs.
--- NOTE | 2025-03-10 14:12 | PN ---
[facility] PROGRESS NOTE Date Patient Seen: March 10, 2025 Time of Visit: 14:12 Supervising Physician: [Dr. Nevarez] Primary Care Physician: [Dr. Graham] Outpatient Specialists: [ ] Inpatient Consults: [ ] PROBLEM LIST: Chronic obstructive pulmonary disease, with acute exacerbation History of right LL pulmonary nodule, being monitored Hypokalemia Tobacco abuse, 40+ pack years Morbid obesity History of right renal cyst, s/p surgical excision Hyperlipidemia Anxiety INTERVAL HISTORY: [Patient is evaluated at bedside. She continues with cough but is unable to expectorate phlegm. States her breathing is somewhat improved but still continues with the hypoxia on supplemental oxygen. Patient persists with bilateral wheezing on auscultation. She does appear weak on exam is well. Urine culture shows 10-50 K CFUs, sputum cultures negative thus far. Labs including CBC and BNP are unremarkable. WBCs are elevated secondary to steroids . COVID/flu negative, ABG WNL.] 03/10 Patient is evaluated at bedside. She continues with bilateral wheezing but is feeling improved from admission. Continues on IV abx and steroids. She is saturating well on room air. Still has non-productive cough. REVIEW OF SYSTEMS: 12 point ROS reviewed with patient. Pertinent positives mentioned above. Otherwise negative. PHYSICAL EXAM: GENERAL: alert, weak, awake oriented x 3 HEENT: EOMI, Sclera non icteric, moist mucosa NECK: Supple, no JVD, trachea midline LUNGS: Clear breath sounds bilaterally. No wheezes HEART: Regular rate and rhythm. Normal S1 and S2, without murmurs ABD: Abdomen soft, nontender. Bowel sounds present EXT: No clubbing cyanosis or edema NEURO: Alert and oriented to person, follows commands Vital Signs (last 8hr) Date Time Temp Pulse Resp B/P (MAP) Pulse Ox O2 Delivery O2 Flow Rate FiO2 03/10/25 11:43 97.9 88 17 131/52 94 Room Air 03/10/25 10:36 88 18 03/10/25 08:31 94 Room Air* 0 21 03/10/25 08:20 78 18 N/A Room Air 21 03/10/25 08:02 97.9 78 19 130/47 94 Room Air 03/10/25 06:52 73 18 LABS: Hematology Labs: Test 03/10/25 04:42 Range/Units White Blood Count 17.3 H 4.8-10.8 K/uL Red Blood Count 4.28 4.00-5.50 MIL/uL Hemoglobin 13.2 12.0-16.0 g/dL Hematocrit 40.7 36-48 % Mean Corpuscular Volume 95.1 79-99 fL Mean Corpuscular Hemoglobin 30.8 27.0-33.0 pg Mean Corpuscular Hemoglobin Concent 32.4 32.0-36.0 g/dL Red Cell Distribution Width 13.0 11.0-15.5 % Platelet Count 246 130-400 K/uL Mean Platelet Volume 9.8 7.5-10.5 fL Immature Granulocyte % (Auto) 1.6 H 0-1 % Neutrophils (%) (Auto) 87.4 H 40.0-77.0 % Lymphocytes (%) (Auto) 7.4 L 21.0-51.0 % Monocytes (%) (Auto) 3.5 3.0-13.0 % Eosinophils (%) (Auto) 0.0 0.0-8.0 % Basophils (%) (Auto) 0.1 0.0-5.0 % Neutrophils # (Auto) 15.2 H 1.8-7.7 K/uL Lymphocytes # (Auto) 1.3 1.0-4.8 K/uL Monocytes # (Auto) 0.6 0.1-1.0 K/uL Eosinophils # (Auto) 0.00 0.00-0.70 K/uL Basophils # (Auto) 0.01 0.00-0.20 K/uL Absolute Immature Granulocyte (auto 0.27 0-1 K/uL Nucleated Red Blood Cells 0.0 0.0-0.19 % Chemistry Labs: Test 03/10/25 11:17 03/09/25 04:14 Range/Units Whole Blood Glucose 175 H 70-110 MG/DL Sodium Level 138 136-145 mmol/L Potassium Level 4.2 3.5-5.1 mmol/L Chloride Level 106 101-111 mmol/L Carbon Dioxide Level 25 21-32 mmol/L Blood Urea Nitrogen 20 H 7-18 mg/dL Creatinine 1.1 H 0.5-1.0 mg/dL Glomerular Filtration Rate Calc 55 >90 mL/min Random Glucose 177 H 70-105 mg/dL Total Calcium 8.7 8.5-10.1 mg/dL DIAGNOSTICS / RADIOLOGY RESULTS: [ ] PLAN Continue IV antibiotics with Rocephin azithromycin Stop Solu-Medrol Start prednisone 40 mg daily Follow urine and sputum cultures COVID and flu swabs negative Obtain baseline ABG Monitor response to treatment Monitor CXR as needed Further management per hospital course All other management per primary Disposition per primary NEURO: Minimize central acting medications as possible. Maintain fall precautions, adequate lighting during the day PULMONARY: Supplemental 02 as needed. Maintain aspiration precautions at all times CARDIOVASCULAR: Follow hemodynamics. Vital signs per facility protocol GI & NUTRITION: Continue with nutritional support. Continue stool softeners and laxatives as needed. KIDNEYS & ELECTROLYTES: Strict monitoring of intake, output and overall fluid balance. Avoid nephrotoxic medications to the extent possible. Medications to be dosed according to renal function. Monitor electrolytes and replace as needed ENDOCRINE: Maintain blood glucose between 100-180 at all times. Hypoglycemia protocol in place INFECTIOUS DISEASE: Trend temperature, WBC and procalcitonin level Follow cultures, deescalate antibiotics as soon as possible. Panculture if new onset fever ONCOLOGY/HEMATOLOGY/COAGULATION: Monitor for s/s of bleeding Monitor hemoglobin, coagulation studies as needed SKIN: Pressure ulcer prevention per facility protocol Specialty mattress ORTHO/REHAB: Continue PT/OT Prophylaxis: Continue GI and DVT prophylaxis Code Status: Full Resuscitation Disposition: TBD Other: Total patient care time exceeds 35 minutes excluding all procedures. ANNAMARIE WHEELER March 10, 2025 14:12
[2025-03-10] MEDS: guaiFENesin-DM 200/20MG 10ML PO PRN (14:42)
[2025-03-10] MEDS: predniSONE 20 MG TABLET PO SCH (14:42)
--- NOTE | 2025-03-10 21:53 | PN ---
PROGRESS NOTE PROGRESS NOTE DATE OF PROGRESS NOTE: 03/10/25 SUBJECTIVE: no new complaints VITAL SIGNS Vital Signs Date Time Temp Pulse Resp B/P (MAP) Pulse Ox O2 Delivery O2 Flow Rate FiO2 03/10/25 21:25 94 Room Air* 0 21 03/10/25 20:00 98.1 96 20 154/56 PHYSICAL EXAM: Physical Exam Physical Exam Physical Exam Dictation VITAL SIGNS: Reviewed. GENERAL APPEARANCE: Alert, oriented x3, no acute distress, obese. HEAD AND FACE: Non-traumatic. EYES: PERRL, pink conjunctivas, eyelid no trauma, anterior chamber clear. EARS: Pinnas intact and no signs of trauma or erythema. Ear canals clear and no discharge. TMs no erythema. NOSE: No discharge, no bleeding. OROPHARYNX: Mouth normal, teeth no caries, tongue pink. Pharynx clear, no erythema. Tonsils no exudates, no abscesses noted. Mucous membrane moist. NECK: Supple, non-tender, no thyromegaly, no masses, no JVD, no bruits. BREAST: Deferred. CHEST: No tenderness, no crepitus, no paradoxical movement, no retractions. LUNGS: Clear, well-ventilated, symmetric, no rales, wheezing, rhonchi, no stridor, good breath sounds bilaterally. HEART: Regular rate, regular rhythm, no murmur, no gallops. VASCULAR: No peripheral edema. ABDOMEN: Soft, positive bowel sounds, nondistended, no guarding, nontender, no rebound, no masses no hepatomegaly, no splenomegaly, no Mercedes's sign, no hernias. RECTAL: Deferred. GENITAL: Deferred. NEUROLOGICAL: Normal speech, gross motor function intact, gross sensory function intact. MUSCULOSKELETAL: Neck nontender, full range of motion, back nontender, full range of motion. EXTREMITIES: Nontender, full range of motion. SKIN: Color pink, dry, no turgor, no rash, no lacerations, no abrasions, no contusions. LYMPHATICS: Deferred. LABORATORY: Laboratory Result(s) Test 03/10/25 04:42 03/10/25 05:09 03/10/25 11:17 03/10/25 15:51 White Blood Count 17.3 K/uL (4.8-10.8) Red Blood Count 4.28 MIL/uL (4.00-5.50) Hemoglobin 13.2 g/dL (12.0-16.0) Hematocrit 40.7 % (36-48) Mean Corpuscular Volume 95.1 fL (79-99) Mean Corpuscular Hemoglobin 30.8 pg (27.0-33.0) Mean Corpuscular Hemoglobin Concent 32.4 g/dL (32.0-36.0) Red Cell Distribution Width 13.0 % (11.0-15.5) Platelet Count 246 K/uL (130-400) Mean Platelet Volume 9.8 fL (7.5-10.5) Immature Granulocyte % (Auto) 1.6 % (0-1) Neutrophils (%) (Auto) 87.4 % (40.0-77.0) Lymphocytes (%) (Auto) 7.4 % (21.0-51.0) Monocytes (%) (Auto) 3.5 % (3.0-13.0) Eosinophils (%) (Auto) 0.0 % (0.0-8.0) Basophils (%) (Auto) 0.1 % (0.0-5.0) Neutrophils # (Auto) 15.2 K/uL (1.8-7.7) Lymphocytes # (Auto) 1.3 K/uL (1.0-4.8) Monocytes # (Auto) 0.6 K/uL (0.1-1.0) Eosinophils # (Auto) 0.00 K/uL (0.00-0.70) Basophils # (Auto) 0.01 K/uL (0.00-0.20) Absolute Immature Granulocyte (auto 0.27 K/uL (0-1) Nucleated Red Blood Cells 0.0 % (0.0-0.19) Whole Blood Glucose 184 MG/DL (70-110) 175 MG/DL (70-110) 245 MG/DL (70-110) Test 03/10/25 19:34 Whole Blood Glucose 333 MG/DL (70-110) INPATIENT MEDS: Current Medications Medications Dose Ordered Sig/Paul Start Time Stop Time Status Last Admin Ceftriaxone Sodium 1 gm Q24H 03/07/25 18:30 03/17/25 18:29 03/10/25 18:17 Azithromycin 500 mg Q24H 03/07/25 18:30 03/17/25 18:29 03/10/25 18:17 Potassium Chloride 100 ml @ 100 mls/hr AD PRN 03/07/25 18:30 04/06/25 18:29 Potassium Chloride 20 meq AD PRN 03/07/25 18:30 04/06/25 18:29 Potassium Chloride 20 meq AD PRN 03/07/25 18:30 04/06/25 18:29 03/08/25 00:11 Magnesium Sulfate 50 ml @ 0 mls/hr PROTOCOL PRN 03/07/25 18:30 04/06/25 18:29 03/07/25 20:48 Alprazolam 0.5 mg BID PRN 03/07/25 21:00 04/06/25 20:59 03/10/25 10:25 Albuterol 1 UDVIAL [id number] 03/07/25 22:30 04/07/25 00:00 03/10/25 18:19 Raloxifene HCl 60 mg DAILY 03/08/25 09:00 04/07/25 08:59 03/10/25 08:31 Simvastatin 20 mg HS 03/08/25 21:00 04/07/25 20:59 03/10/25 20:24 Home Med DAILY 03/08/25 09:00 04/07/25 08:59 Sertraline HCl 150 mg DAILY 03/08/25 09:00 04/07/25 08:59 03/10/25 08:31 Guaifenesin/ Dextromethorphan 10 ml Q4H PRN 03/08/25 07:00 04/07/25 06:59 03/10/25 14:42 Insulin Human Regular INSULIN SLIDING SCAL... ACHS 03/08/25 07:30 04/07/25 07:29 03/10/25 20:25 Acetaminophen 650 mg Q6H PRN 03/08/25 17:30 04/07/25 17:29 03/10/25 20:24 Lactulose 20 gm BID PRN 03/08/25 21:30 04/07/25 21:29 03/10/25 08:36 Prednisone 40 mg DAILY 03/10/25 14:30 04/09/25 14:29 03/10/25 14:42 PROBLEM LIST: (1) Respiratory distress ICD Code: R06.03 - Acute respiratory distress (2) COPD exacerbation ICD Code: J44.1 - Chronic obstructive pulmonary disease with (acute) exacerbation PLAN: IV steroids bronchodilators and DVT prophylaxis follow-through FLORA BROWN MD March 10, 2025 21:53
[2025-03-11] VITALS (16 sets, daily range): BP systolic 123–157; BP diastolic 49–70; PULSE 68–101; RESP 16–22; TEMP 97.8–98.6; O2SAT 93–96
--- NOTE | 2025-03-11 06:30 | NUR ---
DR BROWN IN ROOM WITH PATIENT PER DR BROWN PATIENT NOT READY TO DC KEEP X1 MORE DAY
--- NOTE | 2025-03-11 17:21 | PN ---
PROGRESS NOTE PROGRESS NOTE DATE OF PROGRESS NOTE: 03/11/25 SUBJECTIVE: no new complaints VITAL SIGNS Vital Signs Date Time Temp Pulse Resp B/P (MAP) Pulse Ox O2 Delivery O2 Flow Rate FiO2 03/11/25 14:12 82 18 03/11/25 11:22 98.4 142/58 95 Room Air 03/11/25 07:24 21 03/10/25 21:25 0 PHYSICAL EXAM: Physical Exam Physical Exam Physical Exam Dictation VITAL SIGNS: Reviewed. GENERAL APPEARANCE: Alert, oriented x3, no acute distress, obese. HEAD AND FACE: Non-traumatic. EYES: PERRL, pink conjunctivas, eyelid no trauma, anterior chamber clear. EARS: Pinnas intact and no signs of trauma or erythema. Ear canals clear and n o discharge. TMs no erythema. NOSE: No discharge, no bleeding. OROPHARYNX: Mouth normal, teeth no caries, tongue pink. Pharynx clear, no erythema. Tonsils no exudates, no abscesses noted. Mucous membrane moist. NECK: Supple, non-tender, no thyromegaly, no masses, no JVD, no bruits. BREAST: Deferred. CHEST: No tenderness, no crepitus, no paradoxical movement, no retractions. LUNGS: Clear, well-ventilated, symmetric, no rales, wheezing, rhonchi, no stridor, good breath sounds bilaterally. HEART: Regular rate, regular rhythm, no murmur, no gallops. VASCULAR: No peripheral edema. ABDOMEN: Soft, positive bowel sounds, nondistended, no guarding, nontender, no rebound, no masses no hepatomegaly, no splenomegaly, no Mercedes's sign, no hernias. RECTAL: Deferred. GENITAL: Deferred. NEUROLOGICAL: Normal speech, gross motor function intact, gross sensory function intact. MUSCULOSKELETAL: Neck nontender, full range of motion, back nontender, full range of motion. EXTREMITIES: Nontender, full range of motion. SKIN: Color pink, dry, no turgor, no rash, no lacerations, no abrasions, no contusions. LYMPHATICS: Deferred. LABORATORY: Laboratory Result(s) Test 03/10/25 19:34 03/11/25 05:21 03/11/25 10:40 03/11/25 16:18 Whole Blood Glucose 333 MG/DL (70-110) 160 MG/DL (70-110) 201 MG/DL (70-110) 265 MG/DL (70-110) INPATIENT MEDS: Current Medications Medications Dose Ordered Sig/Paul Start Time Stop Time Status Last Admin Ceftriaxone Sodium 1 gm Q24H 03/07/25 18:30 03/17/25 18:29 03/10/25 18:17 Azithromycin 500 mg Q24H 03/07/25 18:30 03/17/25 18:29 03/10/25 18:17 Potassium Chloride 100 ml @ 100 mls/hr AD PRN 03/07/25 18:30 04/06/25 18:29 Potassium Chloride 20 meq AD PRN 03/07/25 18:30 04/06/25 18:29 Potassium Chloride 20 meq AD PRN 03/07/25 18:30 04/06/25 18:29 03/08/25 00:11 Magnesium Sulfate 50 ml @ 0 mls/hr PROTOCOL PRN 03/07/25 18:30 04/06/25 18:29 03/07/25 20:48 Alprazolam 0.5 mg BID PRN 03/07/25 21:00 04/06/25 20:59 03/11/25 12:33 Albuterol 1 UDVIAL [id number] 03/07/25 22:30 04/07/25 00:00 03/11/25 14:12 Raloxifene HCl 60 mg DAILY 03/08/25 09:00 04/07/25 08:59 03/11/25 08:49 Simvastatin 20 mg HS 03/08/25 21:00 04/07/25 20:59 03/10/25 20:24 Home Med DAILY 03/08/25 09:00 04/07/25 08:59 Sertraline HCl 150 mg DAILY 03/08/25 09:00 04/07/25 08:59 03/11/25 08:50 Guaifenesin/ Dextromethorphan 10 ml Q4H PRN 03/08/25 07:00 04/07/25 06:59 03/10/25 14:42 Insulin Human Regular INSULIN SLIDING SCAL... ACHS 03/08/25 07:30 04/07/25 07:29 03/11/25 16:55 Acetaminophen 650 mg Q6H PRN 03/08/25 17:30 04/07/25 17:29 03/10/25 20:24 Lactulose 20 gm BID PRN 03/08/25 21:30 04/07/25 21:29 03/11/25 08:51 Prednisone 40 mg DAILY 03/10/25 14:30 04/09/25 14:29 03/11/25 08:50 PROBLEM LIST: (1) Respiratory distress ICD Code: R06.03 - Acute respiratory distress (2) COPD exacerbation ICD Code: J44.1 - Chronic obstructive pulmonary disease with (acute) exacerbation PLAN: IV steroids bronchodilators and DVT prophylaxis follow-through FLORA BROWN MD March 11, 2025 17:21
--- NOTE | 2025-03-11 18:57 | PN ---
[facility] PROGRESS NOTE Date Patient Seen: March 11, 2025 Time of Visit: 18:55 Supervising Physician: [Dr. Graham] Primary Care Physician: [Dr. Graham] Outpatient Specialists: [ ] Inpatient Consults: [ ] PROBLEM LIST: Chronic obstructive pulmonary disease, with acute exacerbation History of right LL pulmonary nodule, being monitored Hypokalemia Tobacco abuse, 40+ pack years Morbid obesity History of right renal cyst, s/p surgical excision Hyperlipidemia Anxiety INTERVAL HISTORY: [Patient is evaluated at bedside. She continues with cough but is unable to expectorate phlegm. States her breathing is somewhat improved but still continues with the hypoxia on supplemental oxygen. Patient persists with bilateral wheezing on auscultation. She does appear weak on exam is well. Urine culture shows 10-50 K CFUs, sputum cultures negative thus far. Labs including CBC and BNP are unremarkable. WBCs are elevated secondary to steroids. COVID/flu negative, ABG WNL.] 03/10 Patient is evaluated at bedside. She continues with bilateral wheezing but is feeling improved from admission. Continues on IV abx and steroids. She is saturating well on room air. Still has non-productive cough. 03/11 patient appears weak. She is saturating well on room air but continues with persistent wheezing. States has more trouble breathing today than yesterday. Likely due to transition of steroids from IV to oral. Cough is nonproductive and improved from previous. We will continue current management and monitor patient's response to treatment. REVIEW OF SYSTEMS: 12 point ROS reviewed with patient. Pertinent positives mentioned above. Otherwise negative. PHYSICAL EXAM: GENERAL: alert, weak, awake oriented x 3 HEENT: EOMI, Sclera non icteric, moist mucosa NECK: Supple, no JVD, trachea midline LUNGS: Clear breath sounds bilaterally. No wheezes HEART: Regular rate and rhythm. Normal S1 and S2, without murmurs ABD: Abdomen soft, nontender. Bowel sounds present EXT: No clubbing cyanosis or edema NEURO: Alert and oriented to person, follows commands Vital Signs (last 8hr) Date Time Temp Pulse Resp B/P (MAP) Pulse Ox O2 Delivery O2 Flow Rate FiO2 03/11/25 16:00 98.6 92 18 133/70 95 Room Air 03/11/25 14:12 82 18 03/11/25 11:22 98.4 82 18 142/58 95 Room Air LABS: Hematology Labs: Test 03/10/25 04:42 Range/Units White Blood Count 17.3 H 4.8-10.8 K/uL Red Blood Count 4.28 4.00-5.50 MIL/uL Hemoglobin 13.2 12.0-16.0 g/dL Hematocrit 40.7 36-48 % Mean Corpuscular Volume 95.1 79-99 fL Mean Corpuscular Hemoglobin 30.8 27.0-33.0 pg Mean Corpuscular Hemoglobin Concent 32.4 32.0-36.0 g/dL Red Cell Distribution Width 13.0 11.0-15.5 % Platelet Count 246 130-400 K/uL Mean Platelet Volume 9.8 7.5-10.5 fL Immature Granulocyte % (Auto) 1.6 H 0-1 % Neutrophils (%) (Auto) 87.4 H 40.0-77.0 % Lymphocytes (%) (Auto) 7.4 L 21.0-51.0 % Monocytes (%) (Auto) 3.5 3.0-13.0 % Eosinophils (%) (Auto) 0.0 0.0-8.0 % Basophils (%) (Auto) 0.1 0.0-5.0 % Neutrophils # (Auto) 15.2 H 1.8-7.7 K/uL Lymphocytes # (Auto) 1.3 1.0-4.8 K/uL Monocytes # (Auto) 0.6 0.1-1.0 K/uL Eosinophils # (Auto) 0.00 0.00-0.70 K/uL Basophils # (Auto) 0.01 0.00-0.20 K/uL Absolute Immature Granulocyte (auto 0.27 0-1 K/uL Nucleated Red Blood Cells 0.0 0.0-0.19 % Chemistry Labs: Test 03/11/25 16:18 Range/Units Whole Blood Glucose 265 H 70-110 MG/DL DIAGNOSTICS / RADIOLOGY RESULTS: [ ] PLAN Continue IV antibiotics with Rocephin azithromycin Continue prednisone 40 mg daily Follow urine and sputum cultures COVID and flu swabs negative Obtain baseline ABG Monitor response to treatment Monitor CXR as needed Further management per hospital course All other management per primary Disposition per primary NEURO: Minimize central acting medications as possible. Maintain fall precautions, adequate lighting during the day PULMONARY: Supplemental 02 as needed. Maintain aspiration precautions at all times CARDIOVASCULAR: Follow hemodynamics. Vital signs per facility protocol GI & NUTRITION: Continue with nutritional support. Continue stool softeners and laxatives as needed. KIDNEYS & ELECTROLYTES: Strict monitoring of intake, output and overall fluid balance. Avoid nephrotoxic medications to the extent possible. Medications to be dosed according to renal function. Monitor electrolytes and replace as needed ENDOCRINE: Maintain blood glucose between 100-180 at all times. Hypoglycemia protocol in place INFECTIOUS DISEASE: Trend temperature, WBC and procalcitonin level Follow cultures, deescalate antibiotics as soon as possible. Panculture if new onset fever ONCOLOGY/HEMATOLOGY/COAGULATION: Monitor for s/s of bleeding Monitor hemoglobin, coagulation studies as needed SKIN: Pressure ulcer prevention per facility protocol Specialty mattress ORTHO/REHAB: Continue PT/OT Prophylaxis: Continue GI and DVT prophylaxis Code Status: Full Resuscitation Disposition: TBD Other: Total patient care time exceeds 35 minutes excluding all procedures. ANNAMARIE WHEELER March 11, 2025 18:57
[2025-03-12] VITALS (8 sets, daily range): BP systolic 118–128; BP diastolic 49–67; PULSE 70–85; RESP 17–20; TEMP 97.7–98.7; O2SAT 94–97
[2025-03-12 04:23] LABS: BASOPHILS # (AUTO) 0.02 K/uL (0.00-0.20); BASOPHILS % (AUTO) 0.1 % (0.0-5.0); EOSINOPHILS # (AUTO) 0.04 K/uL (0.00-0.70); EOSINOPHILS % (AUTO) 0.3 % (0.0-8.0); HEMATOCRIT 41.5 % (36-48); IMMATURE GRANULOCYTE ABSOLUTE 0.48 K/uL (0-1); LYMPHOCYTES # (AUTO) 3.2 K/uL (1.0-4.8); LYMPHOCYTES % (AUTO) 23.3 % (21.0-51.0); MEAN CORPUSCULAR HEMOGLOBIN 31.1 pg (27.0-33.0); MEAN CORPUSCULAR HGB CONC 32.8 g/dL (32.0-36.0); MEAN CORPUSCULAR VOLUME 94.7 fL (79-99); MONOCYTES # (AUTO) 0.9 K/uL (0.1-1.0); MONOCYTES % (AUTO) 6.4 % (3.0-13.0); NEUTROPHILS % (AUTO) 66.4 % (40.0-77.0); NUCLEATED RED BLOOD CELLS 0.1 % (0.0-0.19); PLATELET COUNT (AUTO) 218 K/uL (130-400); RED BLOOD CELL COUNT(AUTO) 4.38 MIL/uL (4.00-5.50); WHITE BLOOD COUNT (AUTO) 13.5 K/uL (4.8-10.8)
[2025-03-12 04:33] LABS: ALBUMIN 3.1 g/dL (3.5-5.0); BILIRUBIN,TOTAL 0.2 mg/dL (0.2-1.0); CREATININE 1.3 mg/dL (0.5-1.0); TOTAL PROTEIN, SERUM 6.2 g/dL (6.0-8.3)
[2025-03-12] MEDS ORDERED: ALBU18HF7 IH (13:30)
[2025-03-12] MEDS ORDERED: BUDE10.2 IH (13:30)
[2025-03-12] MEDS ORDERED: METH4TAB3 PO (13:30)
--- NOTE | 2025-03-12 14:07 | NUR ---
DISCHARGE DC'D IV. NO COMPLICATIONS. PT AWARE TO FOLLOW UP WITH PCP IN 2-3 DAYS. ALL QUESTIONS ANSWERED.
--- NOTE | 2025-03-12 14:16 | PN ---
[facility] PROGRESS NOTE Date Patient Seen: March 12, 2025 Time of Visit: 14:12 Supervising Physician: [Dr. Steel] Primary Care Physician: [Dr. Graham] Outpatient Specialists: [ ] Inpatient Consults: [BIS] PROBLEM LIST: Chronic obstructive pulmonary disease, with acute exacerbation, improved History of right LL pulmonary nodule, being monitored Hypokalemia Tobacco abuse, 40+ pack years Morbid obesity History of right renal cyst, s/p surgical excision Hyperlipidemia Anxiety INTERVAL HISTORY: [Patient is evaluated at bedside. She continues with cough but is unable to expectorate phlegm. States her breathing is somewhat improved but still continues with the hypoxia on supplemental oxygen. Patient persists with bilateral wheezing on auscultation. She does appear weak on exam is well. Urine culture shows 10-50 K CFUs, sputum cultures negative thus far. Labs including CBC and BNP are unremarkable. WBCs are elevated secondary to steroids. COVID/flu negative, ABG WNL.] 03/10 Patient is evaluated at bedside. She continues with bilateral wheezing but is feeling improved from admission. Continues on IV abx and steroids. She is saturating well on room air. Still has non-productive cough. 03/11 patient appears weak. She is saturating well on room air but continues with persistent wheezing. States has more trouble breathing today than yesterday. Likely due to transition of steroids from IV to oral. Cough is nonproductive and improved from previous. We will continue current management and monitor patient's response to treatment. 03/12 patient is evaluated at bedside. She is feeling improved from admission. Has less cough. Continues on oral steroids. No fever or white count. Patient is here for discharge from pulmonary standpoint. Will initiate on maintenance therapy outpatient for COPD. REVIEW OF SYSTEMS: 12 point ROS reviewed with patient. Pertinent positives mentioned above. Other fam negative. PHYSICAL EXAM: GENERAL: alert, weak, awake oriented x 3 HEENT: EOMI, Sclera non icteric, moist mucosa NECK: Supple, no JVD, trachea midline LUNGS: Clear breath sounds bilaterally. No wheezes HEART: Regular rate and rhythm. Normal S1 and S2, without murmurs ABD: Abdomen soft, nontender. Bowel sounds present EXT: No clubbing cyanosis or edema NEURO: Alert and oriented to person, follows commands Vital Signs (last 8hr) Date Time Temp Pulse Resp B/P (MAP) Pulse Ox O2 Delivery O2 Flow Rate FiO2 5/8/25 11:28 98.1 75 17 118/50 96 Room Air 03/12/25 07:54 94 Room Air* 0 21 03/12/25 07:50 98.8 76 18 128/67 94 Room Air 03/12/25 07:04 70 18 N/A Room Air 21 03/12/25 06:58 70 20 LABS: Hematology Labs: Test 03/12/25 04:02 Range/Units White Blood Count 13.5 H 4.8-10.8 K/uL Red Blood Count 4.38 4.00-5.50 MIL/uL Hemoglobin 13.6 12.0-16.0 g/dL Hematocrit 41.5 36-48 % Mean Corpuscular Volume 94.7 79-99 fL Mean Corpuscular Hemoglobin 31.1 27.0-33.0 pg Mean Corpuscular Hemoglobin Concent 32.8 32.0-36.0 g/dL Red Cell Distribution Width 13.0 11.0-15.5 % Platelet Count 218 130-400 K/uL Mean Platelet Volume 9.2 7.5-10.5 fL Immature Granulocyte % (Auto) 3.5 H 0-1 % Neutrophils (%) (Auto) 66.4 40.0-77.0 % Lymphocytes (%) (Auto) 23.3 21.0-51.0 % Monocytes (%) (Auto) 6.4 3.0-13.0 % Eosinophils (%) (Auto) 0.3 0.0-8.0 % Basophils (%) (Auto) 0.1 0.0-5.0 % Neutrophils # (Auto) 9.0 H 1.8-7.7 K/uL Lymphocytes # (Auto) 3.2 1.0-4.8 K/uL Monocytes # (Auto) 0.9 0.1-1.0 K/uL Eosinophils # (Auto) 0.04 0.00-0.70 K/uL Basophils # (Auto) 0.02 0.00-0.20 K/uL Absolute Immature Granulocyte (auto 0.48 0-1 K/uL Nucleated Red Blood Cells 0.1 0.0-0.19 % Chemistry Labs: Test 03/12/25 10:33 03/12/25 04:02 03/11/25 19:59 Range/Units Whole Blood Glucose 171 #H 70-110 MG/DL Sodium Level 143 136-145 mmol/L Potassium Level 4.0 3.5-5.1 mmol/L Chloride Level 107 101-111 mmol/L Carbon Dioxide Level 30 21-32 mmol/L Blood Urea Nitrogen 27 H 7-18 mg/dL Creatinine 1.3 H 0.5-1.0 mg/dL Glomerular Filtration Rate Calc 45 >90 mL/min Random Glucose 84 70-105 mg/dL Total Calcium 8.4 L 8.5-10.1 mg/dL Total Bilirubin 0.2 0.2-1.0 mg/dL Aspartate Amino Transf (AST/SGOT) 18 10-37 U/L Alanine Aminotransferase (ALT/SGPT) 57 12-78 U/L Alkaline Phosphatase 80 50-136 U/L Total Protein 6.2 6.0-8.3 g/dL Albumin 3.1 L 3.5-5.0 g/dL Bedside Glucose Comment Notified Nurse DIAGNOSTICS / RADIOLOGY RESULTS: [ ] PLAN Continue IV antibiotics with Rocephin azithromycin until discharge Start medrol dose pack upon discharge Disposition per primary NEURO: Minimize central acting medications as possible. Maintain fall precautions, adequate lighting during the day PULMONARY: Supplemental 02 as needed. Maintain aspiration precautions at all times CARDIOVASCULAR: Follow hemodynamics. Vital signs per facility protocol GI & NUTRITION: Continue with nutritional support. Continue stool softeners and laxatives as needed. KIDNEYS & ELECTROLYTES: Strict monitoring of intake, output and overall fluid balance. Avoid nephrotoxic medications to the extent possible. Medications to be dosed according to renal function. Monitor electrolytes and replace as needed ENDOCRINE: Maintain blood glucose between 100-180 at all times. Hypoglycemia protocol in place INFECTIOUS DISEASE: Trend temperature, WBC and procalcitonin level Follow cultures, deescalate antibiotics as soon as possible. Panculture if new onset fever ONCOLOGY/HEMATOLOGY/COAGULATION: Monitor for s/s of bleeding Monitor hemoglobin, coagulation studies as needed SKIN: Pressure ulcer prevention per facility protocol Specialty mattress ORTHO/REHAB: Continue PT/OT Prophylaxis: Continue GI and DVT prophylaxis Code Status: Full Resuscitation Disposition: TBD Other: Total patient care time exceeds 35 minutes excluding all procedures. ANNAMARIE WHEELER March 12, 2025 14:16
--- NOTE | 2025-03-13 22:30 | DS ---
Discharge Summary DIAGNOSE(S): [Chronic obstructive pulmonary disease, with acute exacerbation, improved History of right LL pulmonary nodule, being monitored Hypokalemia Tobacco abuse, 40+ pack years Morbid obesity History of right renal cyst, s/p surgical excision Hyperlipidemia Anxiety] HOSPITAL COURSE SUMMARY: [She did well with steroids and bronchodilators tapered to oral steroids and discharged] [employer](S): [Pulmonary] PROCEDURE(S)/TREATMENT(S): [] PROBLEM(S): [] FOLLOW-UP TEST(S): [None] DISCHARGE INSTRUCTIONS: [Follow up with PCP in 1-2 days] Home Meds Active Scripts Budesonide/Formoterol Fumarate (Symbicort 160-4.5 Mcg Inhaler) 160 Mcg-4.5 Mcg/Actuation Hfa.aer.ad, 2 PUFF IH BID for 30 Days, #10.2 GM 0 Refills Prov:ANNAMARIE WHEELER 03/12/25 Methylprednisolone (Medrol) 4 Mg Tab.ds.pk, 1 TAB PO AD for 6 Days, #21 TAB 0 Refills 6 on day 1 then reduce by one tablet daily until gone Prov:ANNAMARIE WHEELER 03/12/25 Albuterol Sulfate (Ventolin Hfa) 90 Mcg Hfa.aer.ad, 2 PUFF IH Q4HPRN PRN for wheezing for 30 Days, #18 GM 0 Refills Prov:ANNAMARIE WHEELER 03/12/25 Reported Medications Alprazolam (Alprazolam) 0.5 Mg Tab.rapdis, 0.5 MG PO BID, TAB 03/07/25 Simvastatin (Simvastatin) 20 Mg Tablet, 20 MG PO HS, TAB 03/07/25 Raloxifene HCl (Evista) 60 Mg Tablet, 60 MG PO DAILY, TAB 03/07/25 Bupropion HCl (Bupropion HCl) 100 Mg Tablet, 100 MG PO DAILY, TAB 03/07/25 Sertraline HCl (Sertraline HCl) 20 Mg/Ml Oral.conc, 10 MG PO DAILY, ML 03/07/25 Metformin HCl (Metformin HCl) 500 Mg Tablet, 500 MG PO BID, TAB 03/07/25 Discontinued Scripts Ipratropium/Albuterol Sulfate (Iprat-Albut 0.5-3(2.5) mg/3 ml) 0.5 Mg-3 Mg (2.5 Mg Base)/3 Ml Ampul.neb, 1 UDVIAL IH [id number], #30 VIAL 1 Refill Prov:YEISON PINZON [employer]TENAN[employer]CH[employer]IC [employer]INE 08/21/23 Prednisone (Deltasone/Orasone [Bulk]) 20 Mg Tab, 40 MG PO DAILY, #5 TAB Prov:YEISON PINZON 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
== END 2025-03-12 14:19 | disposition home or self-care (01) | DRG 190 ==
LOC: EDH 15:22 → EDHIP 15:23 → OBSVTOIN 15:23 → 3AH 23:07
PROVIDERS: ADMIT Internal Medicine; ATTEND Internal Medicine
DX: J44.1 Chronic obstructive pulmonary disease with (acute) exacerbation (principal); J96.01 Acute respiratory failure with hypoxia; E66.01 Morbid (severe) obesity due to excess calories; E78.5 Hyperlipidemia, unspecified; F41.9 Anxiety disorder, unspecified; E11.9 Type 2 diabetes mellitus without complications; E87.6 Hypokalemia; T38.0X5A Adverse effect of glucocorticoids and synthetic analogues, initial encounter; Z72.0 Tobacco use; Z68.31 Body mass index [BMI] 31.0-31.9, adult; Z90.710 Acquired absence of both cervix and uterus; Y92.89 Other specified places as the place of occurrence of the external cause
CPT/HCPCS: 36415; 36600; 71045; 80048; 80053; 81001; 82550; 82803; 82948; 83735; 83880; 84484; 85025; 85610; 85730; 87071; 87086; 87205; 87426; 87804; 93005; 94640; 94664; 96365; 96366; 96372; 96375; 99285; G0378; J0696; J1650; J1815; J2919; J3475

== ENCOUNTER → 2025-06-01 | Outpatient (CLI) | payer MEDICARE ==
[~2025-06-01] MED LIST changes: +ALBU18HF7 IH; +ALPR-410 PO; +BUDE10.2 IH; +BUPR100T13 PO; -IPRA3AMP24 IH; +METF-444 PO; +METH4TAB3 PO; -PRED20B PO; +RALO60 PO; +SERT20OR6 PO; +SIMV-43 PO
--- NOTE | 2025-06-01 16:51 | HMCIMG ---
EXAM: CT Chest Without Intravenous Contrast. CLINICAL HISTORY: 70-year-old female with chronic obstructive pulmonary disease. TECHNIQUE: Axial computed tomography images of the chest without intravenous contrast. Dose reduction technique was used including one or more of the following: automated exposure control, adjustment of mA and kV according to patient size, and/or iterative reconstruction. COMPARISON: CT Chest dated 06/16/2023, 15:38 pm. FINDINGS: LUNGS: There is a right upper lobe pulmonary nodule measuring 5.0 cm in diameter (image number 64). Right upper lobe pulmonary nodule 6.5 ml (image 13 of 64). A third right lower lobe pulmonary nodule is seen measuring 5.3 mm (image number 30). Pulmonary nodules are new compared to the prior CT. Consider follow-up CT chest if there is a higher risk such as smoking history. No focal airspace consolidation. A third right pelvic pulmonary nodule is seen 5.3 mm (image number 30). Consider follow-up CT chest findings if there is a higher risk such as smoking history. PLEURAL SPACES: No pleural effusion. No pneumothorax. HEART AND MEDIASTINUM: No cardiomegaly. No significant pericardial effusion. LYMPH NODES: No lymphadenopathy. CHEST WALL AND UPPER ABDOMEN: The chest wall is unremarkable. Mild fatty liver. BONES: Mild degenerative changes of the thoracic spine. IMPRESSION: 1. New right upper lobe pulmonary nodule measuring 5.0 mm (image 64) and second right upper lobe pulmonary nodule measuring 5.3 mm (image 30), compared to prior CT Chest dated 06/16/2023. 2. Consider follow-up CT chest if there is a higher risk such as smoking history. /[place]
== END | disposition home or self-care (01) ==
LOC: RAH 14:05
PROVIDERS: ATTEND Internal Medicine
DX: J44.9 Chronic obstructive pulmonary disease, unspecified (principal); R91.1 Solitary pulmonary nodule; K76.0 Fatty (change of) liver, not elsewhere classified; M47.814 Spondylosis without myelopathy or radiculopathy, thoracic region; Z12.2 Encounter for screening for malignant neoplasm of respiratory organs
CPT/HCPCS: 71250

== ENCOUNTER 2025-07-29 09:28 | Emergency (ER) | payer MEDICARE ==
[~2025-07-29] VITALS: Ht 154.9 cm; Wt 81.6 kg
[2025-07-29 10:37] LABS: IMMATURE GRANULOCYTE ABSOLUTE 0.01 K/uL (0-1); NUCLEATED RED BLOOD CELLS 0.0 % (0.0-0.19); PLATELET COUNT (AUTO) 260 K/uL (130-400); RED BLOOD CELL COUNT(AUTO) 4.35 MIL/uL (4.00-5.50); RED CELL DISTRIBUTION WIDTH 12.6 % (11.0-15.5); WHITE BLOOD COUNT (AUTO) 7.3 K/uL (4.8-10.8)
[2025-07-29 10:44] LABS: CREATININE 1.0 mg/dL (0.5-1.0); GLOMERULAR FILTR. RATE CALC 61.0 mL/min (>90); GLUCOSE,RANDOM 151.0 mg/dL (70-105); SODIUM SERUM 139.0 mmol/L (136-145); UREA NITROGEN, BLOOD 21.0 mg/dL (7-18)
--- NOTE | 2025-07-29 11:01 | ERN ---
General Chief Complaint: Abdominal Pain Stated Complaint: ABDOMINAL PAIN Time Seen by MD: 09:35 Source: patient History of Present Illness Initial Comments This patient is a 70-year-old female who presented with complaint of abdominal pain. Her pain is localized to left upper quadrant of abdomen which feels tender to deep palpation. Her abdomen appears bloated. Patient states that her symptoms began 2 weeks ago and they have been constant with intermittent flare- ups of pain. She denies diarrhea, constipation, hematochezia, melena, nausea or vomiting. Allergies: Coded Allergies: No Known Allergies (Unverified Allergy, Unknown, 08/16/23) Home Meds Active Scripts Simethicone (Simethicone) 180 Mg Capsule, 1 CAP PO BID for 15 Days, #30 CAP 0 Refills Prov:FUENTES ANTUNEZ MD 07/29/25 Budesonide/Formoterol Fumarate (Symbicort 160-4.5 Mcg Inhaler) 160 Mcg-4.5 Mcg/Actuation Hfa.aer.ad, 2 PUFF IH BID for 30 Days, #10.2 GM 0 Refills Prov:ANNAMARIE WHEELER 03/12/25 Methylprednisolone (Medrol) 4 Mg Tab.ds.pk, 1 TAB PO AD for 6 Days, #21 TAB 0 Refills 6 on day 1 then reduce by one tablet daily until gone Prov:ANNAMARIE WHEELER 03/12/25 Albuterol Sulfate (Ventolin Hfa) 90 Mcg Hfa.aer.ad, 2 PUFF IH Q4HPRN PRN for wheezing for 30 Days, #18 GM 0 Refills Prov:ANNAMARIE WHEELER 03/12/25 Reported Medications Alprazolam (Alprazolam) 0.5 Mg Tab.rapdis, 0.5 MG PO BID, TAB 03/07/25 Simvastatin (Simvastatin) 20 Mg Tablet, 20 MG PO HS, TAB 03/07/25 Raloxifene HCl (Evista) 60 Mg Tablet, 60 MG PO DAILY, TAB 03/07/25 Bupropion HCl (Bupropion HCl) 100 Mg Tablet, 100 MG PO DAILY, TAB 03/07/25 Sertraline HCl (Sertraline HCl) 20 Mg/Ml Oral.conc, 10 MG PO DAILY, ML 03/07/25 Metformin HCl (Metformin HCl) 500 Mg Tablet, 500 MG PO BID, TAB 03/07/25 Past Medical History Past Medical History: COPD, Diabetes-Type II Past Surgical History: Hysterectomy, Other, Surgical History Other: CYST REMOVAL FROM RT KIDNEY, HERNIA REPAIR Constitutional: (-) chills, (-) diaphoresis, (-) fever, (-) malaise, (-) weakness, (-) other documentation EENTM: (-) eye pain, (-) blurred vision, (-) tearing, (-) double vision, (-) ear pain, (-) ear discharge, (-) nose pain, (-) nose congestion, (-) throat pain, (-) Throat swelling, (-) mouth pain, (-) tooth pain, (-) mouth swelling, (-) other documentation Respiratory: (-) cough, (-) orthopnea, (-) short of breath, (-) stridor, (-) wheezing, (-) other documentation Cardiovascular: (-) chest pain, (-) edema, (-) palpitations, (-) syncope, (-) dyspnea on exertion, (-) other documentation Gastrointestinal/Abdominal: (+) abdominal pain (Left Upper quadrant) Genitourinary: (-) vaginal discharge, (-) vaginal bleeding, (-) dysuria, (-) frequency, (-) hematuria, (-) pain, (-) other documentation Musculoskeletal: (-) Neck pain, (-) back pain, (-) Flank Pain, (-) joint pain, (-) joint swelling, (-) muscle pain, (-) muscle stiffness, (-) gout, (-) other documentation Neuro: (-) altered mental status, (-) headache, (-) syncope, (-) paralysis, (-) numbness, (-) seizure, (-) pre-existing deficit, (-) tremors, (-) weakness, (-) dizziness, (-) slurred speech, (-) vertigo, (-) other documentation Psych: (-) depression, (-) suicidal ideation, (-) anxiety, (-) emotional problems, (-) auditory hallucinations, (-) visual hallucinations Hematologic/Lymphatic: (-) anemia, (-) blood clots, (-) easy bleeding, (-) easy bruising, (-) swollen glands, (-) other documentation Review of Systems: was completed, & the rest were negative. Nurses Notes Reviewed: Yes Physical Exam General Appearance: (+) apparent distress Orientation: (+) alert, (+) oriented x 3 Head/Face Trauma: No Ear, Nose, Throat: (+) hearing grossly normal, (+) normal ENT inspection, (+) moist mucous membraine; (-) normal pharynx, (-) normal TM, (-) abnormal TM, (-) pharyngeal erythema, (-) sinus drainange, (-) sinus pain, (-) tonsillar exudate, (-) tonsillar swelling, (-) nasal drip, (-) nasal congestion, (-) hearing decreased, (-) dry mucous membraine, (-) other documentation Neck: (+) normal inspection, (+) supple, (+) full range of motion Respiratory: (+) chest non-tender, (+) lungs clear Heart: (+) regular Vascular: (+) no edema Gastrointestinal: (+) distended, (+) tender Extremities: (+) normal range of motion, (+) non-tender Neurologic/Psychiatric: (+) normal speech, (+) no motor defecits, (+) no sensory deficits Results Laboratory and Microbiology Lab and Micro Result Laboratory Tests Test 07/29/25 10:19 White Blood Count 7.3 K/uL (4.8-10.8) Red Blood Count 4.35 MIL/uL (4.00-5.50) Hemoglobin 13.3 g/dL (12.0-16.0) Hematocrit 41.7 % (36-48) Mean Corpuscular Volume 95.9 fL (79-99) Mean Corpuscular Hemoglobin 30.6 pg (27.0-33.0) Mean Corpuscular Hemoglobin Concent 31.9 g/dL (32.0-36.0) L Red Cell Distribution Width 12.6 % (11.0-15.5) Platelet Count 260 K/uL (130-400) Mean Platelet Volume 10.1 fL (7.5-10.5) Immature Granulocyte % (Auto) 0.1 % (0-1) Neutrophils (%) (Auto) 63.5 % (40.0-77.0) Lymphocytes (%) (Auto) 28.9 % (21.0-51.0) Monocytes (%) (Auto) 5.6 % (3.0-13.0) Eosinophils (%) (Auto) 1.5 % (0.0-8.0) Basophils (%) (Auto) 0.4 % (0.0-5.0) Neutrophils # (Auto) 4.6 K/uL (1.8-7.7) Lymphocytes # (Auto) 2.1 K/uL (1.0-4.8) Monocytes # (Auto) 0.4 K/uL (0.1-1.0) Eosinophils # (Auto) 0.11 K/uL (0.00-0.70) Basophils # (Auto) 0.03 K/uL (0.00-0.20) Absolute Immature Granulocyte (auto 0.01 K/uL (0-1) Nucleated Red Blood Cells 0.0 % (0.0-0.19) Sodium Level 139 mmol/L (136-145) Potassium Level 4.0 mmol/L (3.5-5.1) Chloride Level 103 mmol/L (101-111) Carbon Dioxide Level 28 mmol/L (21-32) Blood Urea Nitrogen 21 mg/dL (7-18) H Creatinine 1.0 mg/dL (0.5-1.0) Glomerular Filtration Rate Calc 61 mL/min (>90) Random Glucose 151 mg/dL (70-105) H Total Calcium 9.0 mg/dL (8.5-10.1) EKG/XRAY/US/CT/MRI CT Scan Comment PATIENT: CARROLL CESAR MR#: [id number] : 1955 SEX: F AGE: 70 LOCATION: [facility] ORDER 1137 STATUS: REG REPORT#: [id number] SERVICE 1136 REASON: pain in left upper abdomen ORDERING PHYSICIAN: FUENTES ANTUNEZ MD PROCEDURE: ABD PEL W - CT ABDOMEN/PELVIS W/CONTRAST EXAM: CT Abdomen and Pelvis with IV contrast CLINICAL HISTORY: pain in left upper abdomen TECHNIQUE: Axial computed tomography images of the abdomen and pelvis with intravenous contrast. CONTRAST: with intravenous contrast. COMPARISON: None provided. FINDINGS: LUNG BASES: The lung bases appear clear. No pleural effusions are seen. LIVER: Unremarkable. GALLBLADDER AND BILE DUCTS: Tiny focal gallbladder wall thickening and hyperdensity in the fundus region. Ultrasonography is advised. No radioopaque gallstones are seen. No biliary ductal dilatation is evident. PANCREAS: Unremarkable. SPLEEN: Unremarkable. ADRENAL GLANDS: Unremarkable. KIDNEYS, URETERS, AND BLADDER: The kidneys appear within normal limits. There is no hydronephrosis or hydroureter. No urinary calculi are seen. STOMACH AND BOWEL: Multiple diverticula in the sigmoid colon. Unremarkable appearance of the stomach. No evidence of bowel obstruction. No evidence suggesting enteritis or colitis. APPENDIX: No evidence of acute appendicitis on CT examination. PERITONEUM: No free fluid. No free air. LYMPH NODES: No lymphadenopathy is evident. REPRODUCTIVE: Hysterectomy. VASCULATURE: No evidence of abdominal aortic aneurysm. BONES: No aggressive appearing osseous lesion. No acute osseous pathology evident. IMPRESSION: 1. No acute intraabdominal or pelvic pathology. 2. Tiny focal gallbladder wall thickening and hyperdensity in the fundus region. Ultrasonography is advised. /[place] DICTATED BY: SHELLY GA Jr., MD DATE: 07/29/251453 ELECTRONICALLY SIGNED BY: SHELLY GA Jr., MD DATE: 07/29/251453 [facility] Differential diagnosis: Abdominal bloating, irritable bowel syndrome, bowel obstruction This patient, 70-year-old female, presented with complaint of abdominal pain. CT of abdomen and pelvis with contrast was done which did not reveal any acute abdominal or pelvic pathology. CBC and BMP were done in the ED and patient was given Dilaudid for pain control. After visiting restroom, patient stated that she feels much better and her bloating has improved. ED Course Orders Procedure Category Date Status Time Cbc With Differential LAB 07/29/25 Complete 09:46 Basic Metabolic Panel LAB 07/29/25 Complete 09:46 Hydromorphone 1 Mg PHA 07/29/25 Complete Inj (Dilaudid 1mg Inj 10:00 Ct Abdomen/Pelvis CT 07/29/25 Resulted W/Contrast 11:36 Iohexol (Omnipaque) PHA 07/29/25 Complete 12:35 Current Medications Medications (Trade) Dose Ordered Sig/Paul Route PRN Reason Start Time Stop Time Status Last Admin Dose Admin Hydromorphone HCl (DiLAUDid 1MG INJ) 1 mg ONCE ONCE IVP 07/29/25 10:00 07/29/25 10:01 DC 07/29/25 13:36 Iohexol (Omnipaque) 75 ml STK-MED ONCE IV 07/29/25 12:35 07/29/25 12:35 DC Vital Signs Date Time Temp Pulse Resp B/P (MAP) Pulse Ox O2 Delivery O2 Flow Rate FiO2 07/29/25 09:29 98.4 94 16 135/89 98 Room Air DX & DISP Disposition: Discharge Departure Impression: Primary Impression: Abdominal bloating Additional Impression: IBS (irritable bowel syndrome) Condition: Stable Scripts Simethicone (Simethicone) 180 Mg Capsule 1 CAP PO BID for 15 Days, #30 CAP 0 Refills Prov: FUENTES ANTUNEZ MD 07/29/25 Referrals: FLORA BROWN MD (PCP) I have examined patient, & reviewed all documents, & agreed W/ the Diagnosis, and Plan ATTESTATION BY PHYSICIAN I have seen and examined the patient. I reviewed the documentation, medical decision making, and treatment plan as noted by the resident provider above. I agree with the findings and plan of care. TERA SMITH MUHAMMAD H MD Jul 29, 2025 11:01 TERA SMITH DO Jul 29, 2025 14:45
[2025-07-29] MEDS ORDERED: IOHEXOL-350 75 ML VIAL IV ONE (12:35)
--- NOTE | 2025-07-29 12:56 | NUR ---
PT BEDDED AT THIS TIME IN ER BED 11.
--- NOTE | 2025-07-29 13:15 | NUR ---
PT RETURNED FROM CT ASSUMED CARE AT THIS TIME.
--- NOTE | 2025-07-29 13:55 | HMCIMG ---
EXAM: CT Abdomen and Pelvis with IV contrast CLINICAL HISTORY: pain in left upper abdomen TECHNIQUE: Axial computed tomography images of the abdomen and pelvis with intravenous contrast. CONTRAST: with intravenous contrast. COMPARISON: None provided. FINDINGS: LUNG BASES: The lung bases appear clear. No pleural effusions are seen. LIVER: Unremarkable. GALLBLADDER AND BILE DUCTS: Tiny focal gallbladder wall thickening and hyperdensity in the fundus region. Ultrasonography is advised. No radioopaque gallstones are seen. No biliary ductal dilatation is evident. PANCREAS: Unremarkable. SPLEEN: Unremarkable. ADRENAL GLANDS: Unremarkable. KIDNEYS, URETERS, AND BLADDER: The kidneys appear within normal limits. There is no hydronephrosis or hydroureter. No urinary calculi are seen. STOMACH AND BOWEL: Multiple diverticula in the sigmoid colon. Unremarkable appearance of the stomach. No evidence of bowel obstruction. No evidence suggesting enteritis or colitis. APPENDIX: No evidence of acute appendicitis on CT examination. PERITONEUM: No free fluid. No free air. LYMPH NODES: No lymphadenopathy is evident. REPRODUCTIVE: Hysterectomy. VASCULATURE: No evidence of abdominal aortic aneurysm. BONES: No aggressive appearing osseous lesion. No acute osseous pathology evident. IMPRESSION: 1. No acute intraabdominal or pelvic pathology. 2. Tiny focal gallbladder wall thickening and hyperdensity in the fundus region. Ultrasonography is advised. /[place]
[2025-07-29] MEDS ORDERED: SIME180C61 PO (14:27)
[2025-07-29 14:42] VITALS: BP 132/51; PULSE 76; RESP 16; TEMP 98.4; O2SAT 98
== END 2025-07-29 14:52 | disposition home or self-care (01) ==
LOC: EDH 09:28
DX: R14.0 Abdominal distension (gaseous) (principal); K58.9 Irritable bowel syndrome, unspecified; E11.9 Type 2 diabetes mellitus without complications; J44.9 Chronic obstructive pulmonary disease, unspecified; Z79.51 Long term (current) use of inhaled steroids; Z79.810 Long term (current) use of selective estrogen receptor modulators (SERMs); Z79.84 Long term (current) use of oral hypoglycemic drugs; Z79.899 Other long term (current) drug therapy; Z90.710 Acquired absence of both cervix and uterus; Z98.890 Other specified postprocedural states
CPT/HCPCS: 99285; 74177; 96374; 80048; 85025; 36415; J1171; Q9967